=== PATIENT | female | born 1955 | race Caucasian/White ===

== ENCOUNTER 2021-06-30 15:30 | Emergency (ER) | payer OTHER, SELFPAY ==
[2021-06-30 15:34] VITALS: BP 160/77; PULSE 70; RESP 18; TEMP 36.4; O2SAT 99
--- NOTE | 2021-06-30 15:39 | DI.US.S_ITS ---
PROCEDURE: US PERIPH VENOUS LOW EXTREM LT INDICATIONS: pain/swelling TECHNIQUE: Real-time imaging, as well as color and pulse Doppler interrogation, were performed of the lower extremity deep veins from the inguinal ligament to the popliteal fossa. COMPARISON: None. FINDINGS: The common femoral, femoral and popliteal veins are normally compressible, and free of intraluminal thrombus. Color and pulse Doppler demonstrate normal phasic intraluminal flow. There is normal augmentation response to distal compression maneuver. 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 IMPRESSION: No sonographic evidence of DVT. Dictated by: Nikolay Hunt M.D. on 06/30/2021 at 17:56 Approved by: Nikolay Hunt M.D. on 06/30/2021 at 17:57
[2021-06-30] MEDS: ONDANSETRON 4 MG ODT SL (19:50)
[2021-06-30] MEDS: OXYCODONE/ACETAMINOPHEN 5/325 TABLET 1 TAB PO (19:50)
[2021-06-30] MEDS: DOXYCYCLINE HYCLATE 100 MG TABLET PO (19:51)
--- NOTE | 2021-06-30 20:45 | ED_ITS ---
HPI - Extremity Problem <Dana Alejandro PHYSICAL CHEMISTRY TEACHER - Last Filed: 06/30/21 20:53> General Chief complaint: Extremity Problem,Nontraumatic Stated complaint: Left Sided Leg Pain,R/O DVT/Cellulitis Time Seen by Provider: 06/30/21 19:14 Source: patient Mode of arrival: Wheelchair History of Present Illness HPI Narrative: 66-year-old female presents to the emergency department after being sent over from the walk-in clinic for concern about left lower leg cellulitis verses lower extremity DVT. Patient reports that she had a fever 2 days ago, has not had any nausea or vomiting however she does have a history of rheumatoid arthritis, she is a type 2 diabetic, she denies any wound to her lower extremity, she is able to ambulate on it however it is swollen, red and painful. Her skin is taut and shiny to her lower extremities, there is no drainage. Patient is afebrile at this time, and was sent over from her primary care office for ultrasound and further evaluation of her left lower extremity. She reports that her pain is at an 8/10. Related Data Home Medications Medication Instructions Recorded Confirmed BACLOFEN (#LIORESAL) 20 mg PO PRN #0 01/04/11 LEVOTHYROXINE SODIUM 100 mcg PO QDAY@0600 #0 01/04/11 furosemide 40 mg tablet 40 mg PO QDAY #0 01/04/11 hydrochlorothiazide 25 mg tablet 25 mg PO QDAY #0 01/04/11 lisinopril 10 mg tablet 10 mg PO QDAY #0 01/04/11 metformin 1,000 mg tablet 1,000 mg PO BID #0 01/04/11 simvastatin 20 mg tablet 20 mg PO QDAY #0 01/04/11 spironolactone 50 mg tablet 50 mg PO Q DAY #0 01/04/11 (Aldactone) potassium chloride 8 mEq 8 meq PO PRN #0 10/10/11 tablet,extended release (Klor-Con) Previous Rx's Medication Instructions Recorded doxycycline hyclate 100 mg capsule 100 mg PO DAILY 7 Days #14 cap 06/30/21 ondansetron 4 mg disintegrating 4 mg PO Q8HR 7 Days #14 tab 06/30/21 tablet oxycodone-acetaminophen 5 mg-325 1 tab PO Q8H PRN 7 Days #14 tab 06/30/21 mg tablet (Percocet) Allergies Allergy/AdvReac Type Severity Reaction Status Date / Time CODEINE Allergy Mild CERDA, Uncoded 10/27/17 11:57 FEELING LIKE THINGS ARE CRAWLING ON SKIN, CHEST TIGHTNES From ANTIHISTAMINE PO TER 6 Allergy Mild CERDA, CRAWLY Uncoded 10/27/17 11:57 MG-120 MG FEELING MORPHINE Allergy Mild ITCHING Uncoded 10/27/17 11:57 SULFA Allergy Mild UNKNOWN Uncoded 10/27/17 11:57 CHILDHOOD REACTION Review of Systems <FATOUMATA Hines - Last Filed: 06/30/21 20:53> Review of Systems Narrative: General: Endorses having a fever 2 days ago, denies chills Head/Neck: denies headache, neck pain Eyes: denies visual changes, eye pain Cardio: denies chest pain, palpitations Respiratory: denies shortness of breath, cough GI: denies abdominal pain, nausea, vomiting, or diarrhea : denies dysuria, hematuria MSK: denies joint pain, muscle weakness Skin: denies rash, itching, endorses redness, swelling, shiny skin, and pain to her left lower leg from her calf to her ankle Neuro: denies numbness, tingling Exam <FATOUMATA Hines - Last Filed: 06/30/21 20:53> Narrative Exam Narrative: Independently reviewed vitals signs and nursing notes. General: Awake, alert, nontoxic, no cardiorespiratory distress Head/Neck: Atraumatic, neck full range of motion Eyes: EOMI, conjunctiva normal Nose: nares patent, no rhinorrhea Mouth/Throat: moist mucus membranes Cardio: Regular rate and rhythm, no peripheral edema Respiratory: respirations unlabored without wheezing, stridor, or rales. No retractions. GI: Abdomen soft, nontender MSK: Moves all extremities, neurovascularly intact, left lower extremity is zaida thematous, tender to palpation, shiny, taut, without a wound or any drainage, edematous and appears cellulitic. Erythema was outlined with a pen. Skin: Normal capillary refill, no rash Neuro: Normal speech and cognition, normal gait Initial Vital Signs Initial Vital Signs: Vital Signs Temperature 97.5 F L 06/30/21 15:34 Pulse Rate 70 06/30/21 15:34 Respiratory Rate 18 06/30/21 15:34 Blood Pressure 160/77 H 06/30/21 15:34 Pulse Oximetry 99 06/30/21 15:34 <Mehul Sahni DO - Last Filed: 07/01/21 06:59> Initial Vital Signs Initial Vital Signs: Vital Signs Temperature 97.5 F L 06/30/21 15:34 Pulse Rate 70 06/30/21 15:34 Respiratory Rate 18 06/30/21 15:34 Blood Pressure 160/77 H 06/30/21 15:34 Pulse Oximetry 99 06/30/21 15:34 Course <Dana Alejandro [facility] - Last Filed: 06/30/21 20:53> Orders Ordered: Discontinued Medications Doxycycline Hyclate (Doxycycline Hyclate 100 Mg Tablet) 100 mg PO NOW ONE Stop: 06/30/21 19:35 Last Admin: 06/30/21 19:51 Dose: 100 mg Documented by: HAROLDO Ondansetron HCl (Ondansetron 4 Mg Odt) 4 mg SL NOW ONE Stop: 06/30/21 19:37 Last Admin: 06/30/21 19:50 Dose: 4 mg Documented by: HAROLDO Oxycodone/Acetaminophen (Oxycodone/Acetaminophen 5/325 Tablet) 1 tab PO NOW ONE Stop: 06/30/21 19:35 Last Admin: 06/30/21 19:50 Dose: 1 tab Documented by: HAROLDO Vital Signs Vital signs: Vital Signs - 8 hr 06/30/21 15:34 Temperature 97.5 F L Pulse Rate 70 Respiratory Rate 18 Blood Pressure 160/77 H Pulse Oximetry 99 <Mehul Shani DO - Last Filed: 07/01/21 06:59> Orders Ordered: Discontinued Medications Doxycycline Hyclate (Doxycycline Hyclate 100 Mg Tablet) 100 mg PO NOW ONE Stop: 06/30/21 19:35 Last Admin: 06/30/21 19:51 Dose: 100 mg Documented by: HAROLDO Ondansetron HCl (Ondansetron 4 Mg Odt) 4 mg SL NOW ONE Stop: 06/30/21 19:37 Last Admin: 06/30/21 19:50 Dose: 4 mg Documented by: HAROLDO Oxycodone/Acetaminophen (Oxycodone/Acetaminophen 5/325 Tablet) 1 tab PO NOW ONE Stop: 06/30/21 19:35 Last Admin: 06/30/21 19:50 Dose: 1 tab Documented by: HAROLDO Vital Signs Vital signs: Vital Signs - 8 hr 06/30/21 15:34 Temperature 97.5 F L Pulse Rate 70 Respiratory Rate 18 Blood Pressure 160/77 H Pulse Oximetry 99 [facility] - Extremity (Nontraumatic) <Dana Alejandro [facility] - Last Filed: 06/30/21 20:53> Imaging Data US - DVT: Radiologist's Impression: PROCEDURE:? US PERIPH VENOUS LOW EXTREM LT ? INDICATIONS:? pain/swelling ? TECHNIQUE:? Real-time imaging, as well as color and pulse Doppler interrogation, were performed of the lower extremity deep veins from the inguinal ligament to the popliteal fossa.? ? COMPARISON:? None. ? FINDINGS:? The common femoral, femoral and popliteal veins are normally compressible, and free of intraluminal thrombus.? Color and pulse Doppler demonstrate normal phasic intraluminal flow.? There is normal augmentation response to distal compression maneuver. ? ? 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 ? IMPRESSION:? No sonographic evidence of DVT. ? ? Dictated by: Nikolay Hunt M.D. on 06/30/2021 at 17:56 ? ? Approved by: Nikolay Hunt M.D. on 06/30/2021 at 17:57 ? [facility] Narrative Medical decision making narrative: 66-year-old female presented to the emergency department today for left lower extremity erythema, edema, concern for DVT versus cellulitis. Patient has a history of cellulitis or right lower extremity, she reports that this feels exactly like her cellulitis did previously. She reports her of a DVT that is why she was so concerned about a DVT today. 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 Patient does not have any tenderness to the posterior of her left knee this is an incidental finding. Her left lower extremity appears cellulitic without any abscess or wound. Patient is allergic to sulfa, she was started on doxycycline to cover her for MRSA is she has a history of cellulitis in the past. She understands to follow-up closely with her PCP for another evaluation in 48 hours. She was given pain control, her 1st dose of doxycycline, and Zofran for nausea. Patient is appropriate and amenable to discharge home. Vital signs are stable on repeat examination is unremarkable. Patient has been informed of results. Patient has been given strict return to ER precautions for any new or worsening symptoms. Patient understands to follow up closely with outpatient providers as instructed. Patient understands plan and agrees to discharge home. All questions and concerns answered at this time. Discharge Plan Departure Patient Disposition: Home Clinical Impression: Left leg swelling Instructions: DI for Cellulitis -- Adult Activity Restrictions/Additional Instructions: *You have been diagnosed with cellulitis of your left lower leg. Please follow- up with your primary care provider tomorrow, ask for the soonest available appointment for follow-up your emergency department visit. I have prescribed doxycycline for you, this is not carry the risk of tendon rupture as we previously discussed about the other med. Please use the Percocet as needed for breakthrough pain, you may break them in half to start. Use Zofran as needed for nausea, and take these antibiotics for 1 week. Please follow-up with your primary care provider and compare the outlined area with how it is in the office. It was a pleasure to meet you, and so very sorry about your 4 hour wait. *What to do: *Please continue to take your regular medications as directed. [ x] New medication prescriptions sent to your pharmacy: [facility] [ ] New medication written as a paper prescription [ ] No new medications given *Please follow up with your primary care provider in 2-3 days, call for an appointment. Let them know you were seen in the Emergency Department and that we ask that you be seen in follow up. We will electronically transmit a record of today's note if your PCP is in our system *If you do not have a primary care provider please contact the [facility] Resource line at [phone]. They will ask some questions about your medical history and help get you set up with a doctor in the community. *Return to Emergency Department if you should have any new, worsening or concerning symptoms, such as [fever greater than 101F, chills, worsening pain, persistent vomiting or other bothersome symptoms] Prescriptions: New doxycycline hyclate 100 mg capsule 100 mg PO DAILY 7 Days Qty: 14 0RF oxycodone-acetaminophen [Percocet] 5-325 mg tablet 1 tab PO Q8H PRN (Reason: pain) 7 Days Qty: 14 0RF ondansetron 4 mg tablet,disintegrating 4 mg PO Q8HR 7 Days Qty: 14 0RF No Action furosemide 40 MG tablet 40 mg PO QDAY Qty: 0 0RF hydrochlorothiazide 25 MG tablet 25 mg PO QDAY Qty: 0 0RF spironolactone [Aldactone] 50 MG tablet 50 mg PO Q DAY Qty: 0 0RF LEVOTHYROXINE SODIUM 100 mcg PO QDAY@0600 Qty: 0 0RF metformin 1,000 MG tablet 1,000 mg PO BID Qty: 0 0RF simvastatin 20 MG tablet 20 mg PO QDAY Qty: 0 0RF lisinopril 10 MG tablet 10 mg PO QDAY Qty: 0 0RF BACLOFEN (#LIORESAL) 20 mg PO PRN Qty: 0 0RF potassium chloride [Klor-Con 8] 8 MEQ tablet extended release 8 meq PO PRN Qty: 0 0RF Referrals: Farrukh Benítez DO [Primary Care Provider] - <Mehul Sahni DO - Last Filed: 07/01/21 06:59> Cosign ED Attending Cosignature Attestation: Dr Sahni Co-Sign Statement: I was available for consultation during this patient's emergency department visit. This chart is signed by myself for administrative purposes only. I did not have direct contact with this patient during this visit. They were seen independently by the APC.
== END 2021-06-30 20:01 | disposition home or self-care (01) ==
PROVIDERS: Emergency Provider Nurse Practitioner Critical Care Medicine; PCP Family Medicine
DX: M79.89 Other specified soft tissue disorders (principal); Z88.5 Allergy status to narcotic agent; Z88.2 Allergy status to sulfonamides
CPT/HCPCS: 93971; 99283; 99284

== ENCOUNTER 2021-11-11 13:37 | Emergency (ER) | payer OTHER, SELFPAY ==
[2021-11-11 13:46] VITALS: TEMP 36.6
[2021-11-11 15:48] VITALS: PULSE 73; O2SAT 98
[2021-11-11 15:49] VITALS: BP 135/63; PULSE 77; O2SAT 98
[2021-11-11 16:00] VITALS: BP 122/58; PULSE 75; O2SAT 99
--- NOTE | 2021-11-11 16:12 | ED.SKABFB ---
HPI - Skin/Abscess/Foreign Bdy General Chief complaint: Skin/Abscess/Foreign Body Stated complaint: CELlULITIS LEFT LEG AND COUGH AND MUCUS Time Seen by Provider: 11/11/21 15:46 Source: patient Mode of arrival: Ambulatory History of Present Illness HPI narrative: 66-year-old female nonsmoker with history of bronchitis, prior cellulitis and symptoms consistent with long COVID presents with family in the chief complaint of redness and pain in her left lower extremity and chills. She denies any injury, she has no chest pain or shortness of breath. She is not dizzy nor weak or lightheaded. She has had nasal congestion for many months and states that is at baseline. She is allergic to antihistamines and unable to take any [id number]-[id number] medications. She has had cellulitis in this leg previously and states it feels the same. Related Data Home Medications Medication Instructions Recorded Confirmed BACLOFEN (#LIORESAL) 20 mg PO PRN #0 01/04/11 08/26/21 LEVOTHYROXINE SODIUM 100 mcg PO QDAY@0600 #0 01/04/11 08/26/21 furosemide 40 mg tablet 40 mg PO QDAY #0 01/04/11 08/26/21 hydrochlorothiazide 25 mg tablet 25 mg PO QDAY #0 01/04/11 08/26/21 lisinopril 10 mg tablet 10 mg PO QDAY #0 01/04/11 08/26/21 metformin 1,000 mg tablet 1,000 mg PO BID #0 01/04/11 08/26/21 simvastatin 20 mg tablet 20 mg PO QDAY #0 01/04/11 08/26/21 spironolactone 50 mg tablet 50 mg PO Q DAY #0 01/04/11 08/26/21 (Aldactone) potassium chloride 8 mEq 8 meq PO PRN #0 10/10/11 08/26/21 tablet,extended release (Klor-Con) Previous Rx's Medication Instructions Recorded azithromycin 250 mg tablet See Rx Instructions PO .COMPLEX #6 08/26/21 tab doxycycline hyclate 100 mg tablet 100 mg PO BID #20 tab 11/11/21 fluticasone furoate 27.5 2 spray INTRANASAL DAILY #9.1 ml 11/11/21 mcg/actuation nasal spray,suspension (Flonase Sensimist) hydrocodone 5 mg-acetaminophen 325 1 tab PO Q4-6H PRN #10 tab 11/11/21 mg tablet Allergies Allergy/AdvReac Type Severity Reaction Status Date / Time CODEINE Allergy Mild CERDA, Uncoded 08/26/21 12:07 FEELING LIKE THINGS ARE CRAWLING ON SKIN, CHEST TIGHTNES From ANTIHISTAMINE PO TER 6 Allergy Mild CERDA, CRAWLY Uncoded 08/26/21 12:07 MG-120 MG FEELING MORPHINE Allergy Mild ITCHING Uncoded 08/26/21 12:07 SULFA Allergy Mild UNKNOWN Uncoded 08/26/21 12:07 CHILDHOOD REACTION Review of Systems Review of Systems Narrative: GENERAL: See HPI HEENT: See HPI RESPIRATORY: Denies dyspnea, cough, wheezing, hemoptysis, sputum. CARDIOVASCULAR: Denies chest pain, palpitations, orthopnea, edema, GASTROINTESTINAL: Denies nausea, vomiting, abdominal pain, diarrhea, constipation, melena. : Denies dysuria, frequency, incontinence, hematuria, urinary retention. MUSCULOSKELETAL: denies weakness, joint pain, or bony pain SKIN: See HPI NEUROLOGIC: Denies weakness, headache, numbness, change in speech, confusion, seizures, incoordination. PSYCHIATRIC: No concerning psychosocial issues. 12 point review of systems is negative except for those stated above Patient History Social History Smoking Status: Never smoker Smoking Status: Never smoker Exam Narrative Exam Narrative: GENERAL: [66] year old patient appears stated age. Well-developed patient, in mild distress. HEAD: Atraumatic. Normocephalic. EYES: Pupils equal round and reactive. Extraocular motions intact. No scleral icterus. No injection or drainage. ENT: Moist mucous membranes clear drainage bilateral nares and posterior pharynx, no tonsillar swelling [place]way patent. NECK: Trachea midline. Non tender CARDIOVASCULAR: Regular rate and rhythm without murmurs, gallops, or rubs. RESPIRATORY: Clear to auscultation. Breath sounds equal bilaterally. No wheezes, rales, or rhonchi. GASTROINTESTINAL: Abdomen soft, non-tender, nondistended. EXTREMITIES: No edema or joint tenderness. BACK: Nontender without deformity or crepitance. No flank tenderness. NEURO: AOx3. SKIN: Left lower extremity warm and slightly painful to the touch with erythema not quite circumferential, lower 3rd of left lower extremity, no swelling, pulses intact, sensation intact, no medial thigh pain Initial Vital Signs Initial Vital Signs: Vital Signs Temperature 97.8 F 11/11/21 13:46 Course Orders Ordered: Discontinued Medications Doxycycline Hyclate (Doxycycline Hyclate 100 Mg Tablet) 100 mg PO NOW ONE Stop: 11/11/21 16:33 Vital Signs Vital signs: Vital Signs - 8 hr 11/11/21 13:46 11/11/21 15:48 11/11/21 15:49 Temperature 97.8 F Pulse Rate 73 77 Blood Pressure 135/63 Pulse Oximetry 98 98 11/11/21 16:00 Temperature Pulse Rate 75 Blood Pressure 122/58 L Pulse Oximetry 99 MDM - Skin/Abscess/Foreign Bdy MDM Narrative Medical decision making narrative: Patient without systemic findings to suggest significant underlying infection. She did have chills but no fever today, no weakness. Her upper respiratory symptoms have been present for many months, she has no significant shortness of breath, tachypnea, use of accessory muscles or hypoxemia. Lungs are clear, there is no indication for chest x-ray or labs. Lower extremity evaluation certainly most consistent with cellulitis though DVT considered but thought unlikely given presentation. Extensive return precautions given and questions answered to her apparent satisfaction Discharge Plan Departure Patient Disposition: Home Clinical Impression: Cellulitis Instructions: DI for Cellulitis -- Adult Activity Restrictions/Additional Instructions: *You have been diagnosed with [left lower extremity cellulitis, also symptoms consistent with long haul COVID *What to do: *Please continue to take your regular medications as directed. [ x] New medication prescriptions sent to your pharmacy: [[facility] in [place]] [ ] New medication written as a paper prescription [ ] No new medications given *Please follow up with your primary care provider in 2-3 days, call for an appointment. Let them know you were seen in the Emergency Department and that we ask that you be seen in follow up. We will electronically transmit a record of today's note if your PCP is in our system *If you do not have a primary care provider please contact the [facility] Resource line at [phone]. They will ask some questions about your medical history and help get you set up with a doctor in the community. *Return to Emergency Department if you should have any new, worsening or concerning symptoms, such as [fever greater than 101 F, shaking chills, worsening pain, persistent vomiting or other bothersome symptoms] You have been prescribed a short course of narcotic medications. These are potentially dangerous and addictive medications that should be used carefully. While on these medications you cannot drive or operate heavy machinery. Additionally, you cannot sign legal documents or perform any duties such as this. Many people get constipated on narcotic medications so it would be advisable to discuss stool softeners with the pharmacist when you pick up and delivery driver your prescription. Please understand that we cannot provide further refills of narcotics or controlled substances through the ED and your pain management will need to be through your Primary Care Provider Prescriptions: New Flonase Sensimist 27.5 mcg/actuation spray,suspension 2 spray intranasal DAILY Qty: 9.1 0RF Rx Instructions: into each nostril doxycycline hyclate 100 mg tablet 100 mg PO BID Qty: 20 0RF hydrocodone-acetaminophen 5-325 mg tablet 1 tab PO Q4-6H PRN (Reason: pain) Qty: 10 0RF No Action azithromycin 250 mg tablet See Rx Instructions PO .COMPLEX Qty: 6 0RF Rx Instructions: Take 2 tablets (500mg) by mouth today (day 1), then 1 tablet (250mg) by mouth for 4 days (days 2-5). Finish all of this medication. furosemide 40 MG tablet 40 mg PO QDAY Qty: 0 0RF hydrochlorothiazide 25 MG tablet 25 mg PO QDAY Qty: 0 0RF spironolactone [Aldactone] 50 MG tablet 50 mg PO Q DAY Qty: 0 0RF LEVOTHYROXINE SODIUM 100 mcg PO QDAY@0600 Qty: 0 0RF metformin 1,000 MG tablet 1,000 mg PO BID Qty: 0 0RF simvastatin 20 MG tablet 20 mg PO QDAY Qty: 0 0RF lisinopril 10 MG tablet 10 mg PO QDAY Qty: 0 0RF BACLOFEN (#LIORESAL) 20 mg PO PRN Qty: 0 0RF potassium chloride [Klor-Con 8] 8 MEQ tablet extended release 8 meq PO PRN Qty: 0 0RF Referrals: Farrukh Benítez DO [Primary Care Provider] -
[2021-11-11 16:30] VITALS: BP 161/68; PULSE 78; O2SAT 99
[2021-11-11] MEDS: DOXYCYCLINE HYCLATE 100 MG TABLET PO (16:40)
== END 2021-11-11 16:52 | disposition home or self-care (01) ==
PROVIDERS: Emergency Provider Emergency Medicine; PCP Family Medicine
DX: L03.116 Cellulitis of left lower limb (principal)
CPT/HCPCS: 99283

== ENCOUNTER → 2022-01-12 11:55 | Outpatient (CLI) | payer OTHER, SELFPAY ==
[2022-01-12 12:59] LABS: Add Manual Diff / Slide Review NO; Basophils Absolute Auto 100 /uL (0-100); Basophils Percent Auto 0.8 % (0-2); Eosinophils Absolute Auto 100 /uL (0-450); Eosinophils Percent Auto 1.1 % (2-4); Hematocrit 44.9 % (36-46); Hemoglobin 15.2 g/dL (12.0-16.0); Lymphocytes Absolute Auto 3100 /uL (1100-4500); Lymphocytes Percent Auto 32.5 % (25-40); Mean Corpuscular HGB Conc 33.8 % (30-36); Mean Corpuscular Hemoglobin 28.9 PG (26-34); Mean Corpuscular Volume 85.3 fL (80-100); Monocytes Absolute Auto 700 /uL (0-900); Monocytes Percent Auto 7.3 % (3-14); Neutrophils Absolute Auto 5500 /uL (1500-7000); Neutrophils Percent Auto 58.3 % (50-75); Platelet Count 298 X10^3/uL (150-400); Red Blood Cell Count 5.27 X10^6/uL (4.0-5.2); Red Cell Distribution Width 14.5 % (11.6-14.8); White Blood Cell Count 9.4 X10^3/uL (4.5-11.0)
[2022-01-12 13:02] LABS: Appearance Urine UA CLEAR; Bilirubin Urine UA NEGATIVE (NEGATIVE); Color Urine UA YELLOW; Glucose Urine UA 3+ g/dL (Negative); Ketones Urine UA TRACE (NEGATIVE); Leukocyte Esterase Urine UA NEGATIVE (NEGATIVE); Nitrite Urine UA NEGATIVE (Negative); Occult Blood Urine UA TRACE-LYSED (Negative); Protein Urine UA TRACE (Negative); Specific Gravity Urine UA 1.025 (1.000-1.035); Urobilinogen Urine UA 0.2 E.U./dL (0.2)
[2022-01-12 13:31] LABS: Creatinine Urine Random 122.3 mg/dL
[2022-01-12 13:33] LABS: Hemoglobin A1C% w Est Avg Glu 12.3 % (4.0-6.0)
[2022-01-12 13:37] LABS: Microalbumi Creatinin Ratio Ur 30.2 ug/mg CR (<30); Microalbumin Urine Random 3.7 mg/dL (0-1.6)
[2022-01-12 13:45] LABS: Alanine Aminotransferase 24 IU/L (<35); Albumin 4.5 g/dL (3.5-5.0); Albumin Globulin Ratio 1.5 (1.0-2.8); Alkaline Phosphatase 98 U/L (38-126); Aspartate Aminotransferase 22 IU/L (14-36); BUN Creatinine Ratio 31.7 (6-22); Bilirubin Total 0.7 mg/dL (0.2-1.3); Blood Urea Nitrogen 19 mg/dL (7-17); Calcium 10.7 mg/dL (8.4-10.2); Carbon Dioxide 30 mmol/L (22-32); Chloride 97 mmol/L (98-107); Cholesterol 244 mg/dL (140-199); Estimated Glomerular Filt Rate > 60 mL/min (>60); Glucose 334 mg/dL (80-110); HDL Cholesterol 44 mg/dL (40-60); HEMOLYSIS < 15 (0-50); LDL Cholesterol Calculated 164 mg/dL (<100); Sodium 136 mmol/L (137-145); Total Protein 7.5 g/dL (6.3-8.2); Triglycerides 178 mg/dL (35-150)
[2022-01-12 13:57] LABS: TSH w/ Reflex to FT4 1.54 uIU/mL (0.47-4.68)
== END ==
PROVIDERS: PCP Pediatrics; Referring Provider Pediatrics; Visit Provider Pediatrics
DX: E11.9 Type 2 diabetes mellitus without complications (principal); B94.8 Sequelae of other specified infectious and parasitic diseases; L03.90 Cellulitis, unspecified; R53.83 Other fatigue; Z00.00 Encounter for general adult medical examination without abnormal findings; Z13.9 Encounter for screening, unspecified
CPT/HCPCS: 36415; 80053; 80061; 81003; 82043; 82570; 83036; 84443; 85025

== ENCOUNTER → 2022-02-06 16:07 | Outpatient (CLI) | payer OTHER, SELFPAY | PROVIDERS: PCP Pediatrics; Visit Provider Student in an Organized Health Care Education/Training Program | DX: L03.90 Cellulitis, unspecified (principal) | CPT/HCPCS: 87070; 87077; 87147; 87186; 87205 ==

== ENCOUNTER → 2022-02-12 16:37 | Outpatient (CLI) | payer OTHER, SELFPAY ==
--- NOTE | 2022-02-12 16:42 | DI.RAD.S_ITS ---
PROCEDURE: XR FOOT RT MIN 3V INDICATIONS: foot pain no injury diabetes TECHNIQUE: 3 views of the foot were acquired. COMPARISON: [facility], CR, XR ANKLE RT MIN 3V, 02/12/2022, 16:44. FINDINGS: Bones: No fractures or dislocations. No suspicious bony lesions. Generalized degenerative changes are seen, which are worst along the Lisfranc joint. A moderate Achilles insertion spur can be seen. A plantar calcaneal spur is seen. Soft tissues: There is generalized soft tissue swelling. IMPRESSION: Generalized soft tissue swelling, without an acute bony abnormality seen. Generalized degenerative changes are seen, which are worst along the Lisfranc joint. If there is strong suspicion for developing osteomyelitis, please consider a dedicated MRI without and with contrast for further evaluation (assuming that there is no contraindication to MRI). Dictated by: Romeo Roldan M.D. on 02/12/2022 at 16:08 Approved by: Romeo Roldan M.D. on 02/12/2022 at 16:09
--- NOTE | 2022-02-12 16:42 | DI.RAD.S_ITS ---
PROCEDURE: XR ANKLE RT MIN 3V INDICATIONS: ankle pain w/ambulation, no injury diabetes TECHNIQUE: 3 views of the ankle were acquired. COMPARISON: [facility], CR, XR FOOT RT MIN 3V, 02/12/2022, 16:44. FINDINGS: Bones: Remote, healed fractures are seen involving the distal tibia and distal fibula. Generalized degenerative changes are seen, which are worst along the tibiotalar joint. A prominent Achilles insertion spur can be seen. A plantar calcaneal spur is seen. Soft tissues: Generalized moderate soft tissue swelling can be seen. IMPRESSION: Soft tissue swelling is seen, without an acute bony abnormality seen by plain film. If there is point tenderness (or other clinical suspicion for a fracture not seen on these images) then a dedicated CT or a short-term followup plain film series could be considered for further evaluation, as clinically appropriate. Prominent degenerative changes are seen. Remote fractures can be seen of the distal tibia and distal fibular shafts. Dictated by: Romeo Roldan M.D. on 02/12/2022 at 16:06 Approved by: Romeo Roldan M.D. on 02/12/2022 at 16:08
== END ==
PROVIDERS: PCP Pediatrics; Referring Provider Student in an Organized Health Care Education/Training Program; Visit Provider Student in an Organized Health Care Education/Training Program
DX: M77.31 Calcaneal spur, right foot (principal); M79.671 Pain in right foot; M25.571 Pain in right ankle and joints of right foot; M79.89 Other specified soft tissue disorders
CPT/HCPCS: 73610; 73630

== ENCOUNTER → 2022-03-20 12:07 | Outpatient (CLI) | payer OTHER, SELFPAY ==
[2022-03-20 15:09] LABS: Alanine Aminotransferase 20 IU/L (<35); Albumin 4.1 g/dL (3.5-5.0); Albumin Globulin Ratio 1.4 (1.0-2.8); Alkaline Phosphatase 93 U/L (38-126); Aspartate Aminotransferase 16 IU/L (14-36); BUN Creatinine Ratio 34.7 (6-22); Bilirubin Total 0.5 mg/dL (0.2-1.3); Blood Urea Nitrogen 17 mg/dL (7-17); Calcium 10.2 mg/dL (8.4-10.2); Carbon Dioxide 28 mmol/L (22-32); Chloride 101 mmol/L (98-107); Estimated Glomerular Filt Rate > 60 mL/min (>60); Globulin 2.9 g/dL (1.7-4.1); Glucose 276 mg/dL (80-110); HEMOLYSIS < 15 (0-50); Potassium 3.8 mmol/L (3.4-5.1); Sodium 136 mmol/L (137-145)
[2022-03-20 15:37] LABS: TSH w/ Reflex to FT4 1.87 uIU/mL (0.47-4.68)
[2022-03-21 08:08] LABS: Parathyroid Hormone, Intact 53 pg/mL (15-65)
== END ==
PROVIDERS: PCP Pediatrics; Referring Provider Pediatrics; Visit Provider Pediatrics
DX: E11.9 Type 2 diabetes mellitus without complications (principal); E03.9 Hypothyroidism, unspecified; R53.83 Other fatigue
CPT/HCPCS: 36415; 80053; 82310; 83970; 84443

== ENCOUNTER → 2022-06-02 14:52 | Outpatient (CLI) | payer OTHER, SELFPAY ==
--- NOTE | 2022-06-02 14:54 | DI.RAD.S_ITS ---
PROCEDURE: XR CHEST 2V INDICATIONS: cough TECHNIQUE: 2 views of the chest were acquired. COMPARISON: None. FINDINGS: Surgical changes and devices: None. Lungs and pleura: Lungs are clear. No pleural effusions or pneumothorax. Mediastinum: Mediastinal contours are normal. Heart size is normal. Bones and chest wall: No suspicious bony abnormalities. Soft tissues appear unremarkable. IMPRESSION: No acute cardiopulmonary disease process. Dictated by: Tori Carey MD, PhD on 06/02/2022 at 15:26 Approved by: Tori Carey MD, PhD on 06/02/2022 at 15:26
--- NOTE | 2022-06-02 14:54 | DI.RAD.S_ITS ---
PROCEDURE: XR SINUS MIN 3V INDICATIONS: severe congestion TECHNIQUE: 3 views of the sinuses were acquired. COMPARISON: None. FINDINGS: Sinuses: Increased opacification of the right frontal sinus. The visualized mastoids also appear clear. Bones: No suspicious bony lesions. Nasal septum is midline. IMPRESSION: Possible mucosal thickening involving the right frontal sinus. Recommend CT scan of the sinuses for definitive characterization. Dictated by: Tori Carey MD, PhD on 06/02/2022 at 15:29 Approved by: Tori Carey MD, PhD on 06/02/2022 at 15:30
== END ==
PROVIDERS: PCP Pediatrics; Referring Provider Physician Assistant Medical; Visit Provider Physician Assistant Medical
DX: R05.9 Cough, unspecified (principal); R09.81 Nasal congestion
CPT/HCPCS: 70220; 71046

== ENCOUNTER → 2022-11-06 10:11 | Outpatient (CLI) | payer MEDICARE, SELFPAY ==
--- NOTE | 2022-11-06 10:13 | DI.RAD.S_ITS ---
PROCEDURE: XR SHOULDER RT MIN 2V INDICATIONS: right shoulder pain TECHNIQUE: 3 views of the shoulder were acquired. COMPARISON: None. FINDINGS: Bones: No fractures or dislocations. No suspicious bony lesions. Visualized ribs appear intact. Glenohumeral and acromioclavicular joint space narrowing with associated osteophytosis. Soft tissues: No suspicious soft tissue calcifications. IMPRESSION: Moderate shoulder osteoarthritis. Dictated by: Joey Flores M.D. on 11/06/2022 at 13:41 Approved by: Joey Flores M.D. on 11/06/2022 at 13:42
--- NOTE | 2022-11-06 10:13 | DI.RAD.S_ITS ---
PROCEDURE: XR FOOT RT MIN 3V INDICATIONS: 2nd toe pain TECHNIQUE: 3 views of the foot were acquired. COMPARISON: [facility], CR, XR FOOT RT MIN 3V, 02/12/2022, 16:44. FINDINGS: Bones: Interval bone remodeling of the 4th and 5th metatarsal fractures. Soft tissues: No tibiotalar joint effusion. Achilles tendon appears normal. Stable 6 millimeter dense region medial to the 2nd mid phalanx. IMPRESSION: Stable 6 millimeter dense region medial to the 2nd middle phalanx. Findings probably represent dystrophic calcification, less likely foreign body. No definite acute radiographic abnormality. If pain persists with conservative management, consider repeat radiographs in 10-14 days or cross sectional imaging such as CT or MRI for further assessment. Dictated by: Joey Flores M.D. on 11/06/2022 at 13:37 Approved by: Joey Flores M.D. on 11/06/2022 at 13:41
== END ==
PROVIDERS: PCP Family Medicine; Referring Provider Family Medicine; Visit Provider Family Medicine
DX: M79.674 Pain in right toe(s) (principal); M79.89 Other specified soft tissue disorders; M25.511 Pain in right shoulder; M19.011 Primary osteoarthritis, right shoulder
CPT/HCPCS: 73030; 73630

== ENCOUNTER 2022-12-05 13:52 | Inpatient (IN) | payer MEDICARE, SELFPAY ==
[2022-12-05] VITALS (10 sets, daily range): BP systolic 154–198; BP diastolic 60–79; PULSE 58–72; RESP 16–18; TEMP 36.2–36.6; O2SAT 94–100; BMI 37.4
--- NOTE | 2022-12-05 14:10 | ED.GENADULT ---
HPI - General Adult General Chief complaint: Skin/Abscess/Foreign Body Stated complaint: per pt rt leg infection Time Seen by Provider: 12/05/22 14:01 History of Present Illness HPI narrative: 67-year-old female nonsmoker with history of diabetes and hypothyroid presents at the request of the walk-in clinic for evaluation of a tender, red and swollen right lower extremity with fever as high as 103 and shaking chills. She states that she was scratched by a cat about 1 week ago and over the past few days developed rapidly increasing swelling and pain. She now has red streaks moving upper thigh. She denies runny nose, sore throat or cough. She has no chest pain Related Data Home Medications Medication Instructions Recorded Confirmed alprazolam 0.25 mg tablet 0.25 mg PO DAILY PRN anxiety, sleep 03/20/22 12/06/22 aspirin 81 mg tablet,delayed 81 mg PO DAILY 03/20/22 12/06/22 release (Kenny Low Dose Aspirin) atorvastatin 40 mg tablet 40 mg PO QPM 03/20/22 12/06/22 levothyroxine 100 mcg tablet 100 mcg PO DAILY 03/20/22 12/06/22 lisinopril 20 mg tablet 20 mg PO DAILY 03/20/22 12/06/22 metformin 1,000 mg tablet 1,000 mg PO BID 03/20/22 12/06/22 tramadol 50 mg tablet 50 mg PO Q6H PRN Pain, Moderate 03/20/22 12/06/22 Previous Rx's Medication Instructions Recorded Disabled Parking Permit #1 ea 03/20/22 blood sugar diagnostic (Blood #100 ea 03/26/22 Glucose Test strips) blood-glucose meter #1 ea 03/26/22 lancets 33 gauge (BD Ultra Fine #100 ea 03/26/22 Lancets) blood-glucose meter,continuous #1 ea 11/06/22 (Dexcom G6 Microbiology Professor) blood-glucose sensor (Dexcom G6 #3 ea 11/06/22 Sensor device) blood-glucose transmitter (Dexcom #1 ea 11/06/22 G6 Transmitter device) insulin glargine 100 unit/mL (3 See Rx Instructions .Route 11/19/22 mL) subcutaneous pen (Lantus .COMPLEX #15 mL Solostar U-100 Insulin) Allergies Allergy/AdvReac Type Severity Reaction Status Date / Time barbital Allergy Severe ITCHING Verified 12/05/22 14:15 nettle Allergy Severe Anaphylaxis Verified 12/05/22 14:15 codeine Allergy Intermediate Headache Verified 12/05/22 14:15 empagliflozin Allergy Intermediate Hives Verified 12/05/22 14:15 [From Jardiance] adhesive tape Allergy Mild ITCHING Verified 12/06/22 04:01 morphine Allergy Mild ITCHING Verified 12/05/22 14:15 Sulfa (Sulfonamide Allergy Unknown childhood Verified 12/05/22 14:15 Antibiotics) From ANTIHISTAMINE PO TER 6 Allergy Mild CERDA, CRAWLY Uncoded 12/05/22 14:15 MG-120 MG FEELING Review of Systems Review of Systems Narrative: or shortness of breath. GENERAL: Denies chills, fatigue, malaise, fever, sweats. HEENT: Denies sinus pain, ear pain, sore throat, difficulty swallowing, dizziness. RESPIRATORY: Denies dyspnea, cough, wheezing, hemoptysis, sputum. CARDIOVASCULAR: Denies chest pain, palpitations, orthopnea, edema, GASTROINTESTINAL: Denies nausea, vomiting, abdominal pain, diarrhea, constipation, melena. : Denies dysuria, frequency, incontinence, hematuria, urinary retention. MUSCULOSKELETAL: denies weakness, joint pain, or bony pain SKIN: Denies rash, skin lesions, or other NEUROLOGIC: Denies weakness, headache, numbness, change in speech, confusion, seizures, incoordination. PSYCHIATRIC: No concerning psychosocial issues. 12 point review of systems is negative except for those stated above Patient History Social History household members: children Smoking Status: Never smoker alcohol intake: former substance use type: does not use Smoking Status: Never smoker Exam Narrative Exam Narrative: GENERAL: [67] year old patient appears stated age. Well-developed patient, in mild distress. Appears to feel unwell, weak, moving slowly HEAD: Atraumatic. Normocephalic. EYES: Pupils equal round and reactive. Extraocular motions intact. No scleral icterus. No injection or drainage. ENT: Nose without bleeding, purulent drainage. Throat without erythema, tonsillar hypertrophy or exudate. Airway patent. NECK: Trachea midline. Non tender CARDIOVASCULAR: Regular rate and rhythm without murmurs, gallops, or rubs. RESPIRATORY: Clear to auscultation. Breath sounds equal bilaterally. No wheezes, rales, or rhonchi. GASTROINTESTINAL: Abdomen soft, non-tender, nondistended. EXTREMITIES: No edema or joint tenderness. BACK: Nontender without deformity or crepitance. No flank tenderness. NEURO: AOx3. SKIN: Right lower extremity with circumferential erythema from just below the knee to at least the ankle, there is mild lymphangitis extending proximal to the knee and medially. There are superficial abrasions but no evidence of induration or fluctuance, low suspicion for foreign body. Initial Vital Signs Initial Vital Signs: Vital Signs Temperature 97.9 F 12/05/22 14:12 Pulse Rate 72 12/05/22 14:12 Respiratory Rate 18 12/05/22 14:12 Blood Pressure 198/79 H 12/05/22 14:12 Pulse Oximetry 96 12/05/22 14:12 Oxygen Delivery Method Room Air 12/05/22 14:12 Course Orders Ordered: Acetaminophen (Acetaminophen 325 Mg Tablet) 650 mg PO Q6H PRN PRN Reason: Fever/Mild Pain (1-3) Alprazolam (Alprazolam 0.25 Mg Tablet) 0.25 mg PO DAILY PRN PRN Reason: anxiety, sleep Aspirin (Aspirin Ec 81 Mg Tablet) 81 mg PO DAILY MARIE Atorvastatin Calcium (Atorvastatin 20 Mg Tablet) 40 mg PO QPM [facility] Dextrose (Dextrose 50 % In Water 25 Gm/50 Ml Syringe) 25 gm IV PRN PRN PRN Reason: Hypoglycemia Enoxaparin Sodium (Enoxaparin 40 Mg/0.4 Ml Syringe) 40 mg SUBCUT DAILY [facility] Ceftriaxone Sodium 1,000 mg/ (Sodium Chloride) 100 mls @ 200 mls/hr IV Q24H MARIE Vancomycin HCl (Vancomycin) 1,000 mg in 200 mls @ 200 mls/hr IV Q8H [facility] Insulin Glargine (Insulin Glargine 100 Unit/Ml 3ml Pen) 40 unit SUBCUT DAILY [facility] Insulin Human Lispro (Insulin Lispro 100 Unit/Ml 3ml Vial) 0 unit SUBCUT ACHS [facility]; Protocol Last Admin: 12/05/22 21:16 Dose: 7 unit Documented By: MS Co-signed By: ANNABEL Levothyroxine Sodium (Levothyroxine 100 Mcg Tablet) 100 mcg PO QACBREAK [facility] Last Admin: 12/06/22 06:50 Dose: 100 mcg Documented By: AUGUSTO Naloxone HCl (Naloxone 0.4 Mg/Ml Vial) 0.2 mg IV Q2MIN PRN PRN Reason: Opiate Reversal Ondansetron HCl (Ondansetron 4 Mg/2 Ml Inj) 4 mg IV Q8HR PRN PRN Reason: Nausea And Vomiting Last Admin: 12/05/22 17:53 Dose: 4 mg Documented By: CALVIN Oxycodone HCl (Oxycodone Ir 5 Mg Tablet) 5 mg PO Q3H PRN PRN Reason: Pain, Moderate (4-6) Last Admin: 12/05/22 17:53 Dose: 5 mg Documented By: CALVIN Sodium Chloride (Sodium Chloride 0.9% Flush) 10 ml IV BID [facility] Last Admin: 12/05/22 18:01 Dose: 10 ml Documented By: CALVIN Vancomycin HCl (Vancomycin Trough) 1 request [facility] Stop: 12/07/22 10:31 Discontinued Medications Hydromorphone HCl (Hydromorphone 0.5 Mg Inj) 0.5 mg IV Q2H PRN PRN Reason: Pain, Severe (7-10) Sodium Chloride (Normal Saline 0.9%) 1,000 mls @ 1,000 mls/hr IV BOLUS ONE Stop: 12/05/22 15:09 Last Infusion: 12/05/22 16:44 Dose: 0 mls/hr Documented By: Admin: 12/05/22 15:03 Dose: 1,000 mls/hr Documented By: DORIAN Vancomycin HCl/Dextrose (Vancomycin) 1,500 mg in 300 mls @ 200 mls/hr IV NOW ONE Stop: 12/05/22 15:41 Last Infusion: 12/05/22 16:44 Dose: 0 mls/hr Documented By: Admin: 12/05/22 15:03 Dose: 200 mls/hr Documented By: DORIAN Ceftriaxone Sodium 2,000 mg/ (Sodium Chloride) 100 mls @ 200 mls/hr IV NOW ONE Stop: 12/05/22 15:16 Last Admin: 12/05/22 17:59 Dose: 100 mls/hr Documented By: CALVIN Vancomycin HCl (Vancomycin) 1,250 mg in 250 mls @ 250 mls/hr IV Q12H [facility] Last Infusion: 12/06/22 04:40 Dose: 0 mls/hr Documented By: Admin: 12/06/22 03:29 Dose: 250 mls/hr Documented By: AUGUSTO Vital Signs Vital signs: Vital Signs - 8 hr 12/05/22 14:12 Temperature 97.9 F Pulse Rate 72 Respiratory Rate 18 Blood Pressure 198/79 H Pulse Oximetry 96 Oxygen Delivery Method Room Air Medical Decision Making Lab Data 12/06/22 05:25 12/06/22 05:25 Labs: Lab Results 12/05/22 12/05/22 12/05/22 Range/Units 14:25 14:25 14:25 WBC 14.3 H (4.5-11.0) X10^3/uL RBC 4.57 (4.0-5.2) X10^6/uL Hgb 13.0 (12.0-16.0) g/dL Hct 39.0 (36-46) % MCV 85.3 (80-100) fL MCH 28.5 (26-34) PG MCHC 33.5 (30-36) % RDW 14.2 (11.6-14.8) % Plt Count 255 (150-400) X10^3/uL Neut % (Auto) 74.6 (50-75) % Lymph % (Auto) 18.4 L (25-40) % Crawford % (Auto) 5.3 (3-14) % Eos % (Auto) 0.6 L (2-4) % Baso % (Auto) 1.1 (0-2) % Neut # (Auto) 32656 H (7910-2840) /uL Lymph # (Auto) 2600 (7089-6016) /uL Crawford # (Auto) 800 (0-900) /uL Eos # (Auto) 100 (0-450) /uL Baso # (Auto) 200 H (0-100) /uL Sodium 131 L (137-145) mmol/L Potassium 3.9 (3.4-5.1) mmol/L Chloride 100 (98-107) mmol/L Carbon Dioxide 23 (22-32) mmol/L BUN 13 (7-17) mg/dL Creatinine 0.40 L (0.52-1.04) mg/dL Estimated GFR > 60 (>60) mL/min BUN/Creatinine Ratio 32.5 H (6-22) Glucose 235 H (80-110) mg/dL Lactate 1.2 (0.7-2.1) mmol/L Calcium 10.0 (8.4-10.2) mg/dL Total Bilirubin 0.7 (0.2-1.3) mg/dL AST 16 (14-36) IU/L ALT 19 (<35) IU/L Alkaline Phosphatase 114 (38-126) U/L Total Protein 6.9 (6.3-8.2) g/dL Albumin 3.7 (3.5-5.0) g/dL Globulin 3.2 (1.7-4.1) g/dL Albumin/Globulin Ratio 1.2 (1.0-2.8) SARS-CoV-2 (PCR) (Negative) 12/05/22 Range/Units 15:34 WBC (4.5-11.0) X10^3/uL RBC (4.0-5.2) X10^6/uL Hgb (12.0-16.0) g/dL Hct (36-46) % MCV (80-100) fL MCH (26-34) PG MCHC (30-36) % RDW (11.6-14.8) % Plt Count (150-400) X10^3/uL Neut % (Auto) (50-75) % Lymph % (Auto) (25-40) % Crawford % (Auto) (3-14) % Eos % (Auto) (2-4) % Baso % (Auto) (0-2) % Neut # (Auto) (2640-1252) /uL Lymph # (Auto) (8049-0856) /uL Crawford # (Auto) (0-900) /uL Eos # (Auto) (0-450) /uL Baso # (Auto) (0-100) /uL Sodium (137-145) mmol/L Potassium (3.4-5.1) mmol/L Chloride (98-107) mmol/L Carbon Dioxide (22-32) mmol/L BUN (7-17) mg/dL Creatinine (0.52-1.04) mg/dL Estimated GFR (>60) mL/min BUN/Creatinine Ratio (6-22) Glucose (80-110) mg/dL Lactate (0.7-2.1) mmol/L Calcium (8.4-10.2) mg/dL Total Bilirubin (0.2-1.3) mg/dL AST (14-36) IU/L ALT (<35) IU/L Alkaline Phosphatase (38-126) U/L Total Protein (6.3-8.2) g/dL Albumin (3.5-5.0) g/dL Globulin (1.7-4.1) g/dL Albumin/Globulin Ratio (1.0-2.8) SARS-CoV-2 (PCR) Negative (Negative) MDM Narrative Medical decision making narrative: 67-year-old female diabetic with BMI 537 presents with rapid progression of infectious process of right lower extremity which is now circumferential with lymphangitis. She has risk factors including diabetes and obesity. Patient is a poor candidate for oral antibiotics at this time and is appropriate for admission. I have discussed this case with on-call hospitalist (Dr. Foley), he will see the patient at the bedside. Patient agrees with and understands the diagnosis and plan. Discharge Plan Departure Patient Disposition: Admitted as Observation Clinical Impression: Cellulitis Admit Date/Time: 12/05/22 16:03 Admit Provider: Gavin Foley
[2022-12-05 14:35] LABS: Add Manual Diff / Slide Review NO; Basophils Absolute Auto 200 /uL (0-100); Basophils Percent Auto 1.1 % (0-2); Eosinophils Absolute Auto 100 /uL (0-450); Eosinophils Percent Auto 0.6 % (2-4); Lymphocytes Absolute Auto 2600 /uL (1100-4500); Lymphocytes Percent Auto 18.4 % (25-40); Mean Corpuscular HGB Conc 33.5 % (30-36); Mean Corpuscular Hemoglobin 28.5 PG (26-34); Mean Corpuscular Volume 85.3 fL (80-100); Monocytes Absolute Auto 800 /uL (0-900); Monocytes Percent Auto 5.3 % (3-14); Neutrophils Absolute Auto 10600 /uL (1500-7000); Neutrophils Percent Auto 74.6 % (50-75); Platelet Count 255 X10^3/uL (150-400); Red Blood Cell Count 4.57 X10^6/uL (4.0-5.2); Red Cell Distribution Width 14.2 % (11.6-14.8); White Blood Cell Count 14.3 X10^3/uL (4.5-11.0)
[2022-12-05 14:44] LABS: Lactate (Lactic Acid) 1.2 mmol/L (0.7-2.1)
[2022-12-05 14:45] LABS: Alanine Aminotransferase 19 IU/L (<35); Albumin 3.7 g/dL (3.5-5.0); Albumin Globulin Ratio 1.2 (1.0-2.8); Alkaline Phosphatase 114 U/L (38-126); Aspartate Aminotransferase 16 IU/L (14-36); BUN Creatinine Ratio 32.5 (6-22); Bilirubin Total 0.7 mg/dL (0.2-1.3); Blood Urea Nitrogen 13 mg/dL (7-17); Carbon Dioxide 23 mmol/L (22-32); Chloride 100 mmol/L (98-107); Estimated Glomerular Filt Rate > 60 mL/min (>60); Globulin 3.2 g/dL (1.7-4.1); Glucose 235 mg/dL (80-110); HEMOLYSIS < 15 (0-50); Potassium 3.9 mmol/L (3.4-5.1); Sodium 131 mmol/L (137-145); Total Protein 6.9 g/dL (6.3-8.2)
[2022-12-05] MEDS: SODIUM CHLORIDE 0.9% 1,000 ML 1000 ML IV (15:03)
[2022-12-05] MEDS: VANCOMYCIN 1,500 MG/300 ML PIGGYBACK 200 MG IV (15:03)
[2022-12-05 15:53] LABS: COVID19 -Nasal RAPID Negative (Negative)
[2022-12-05] MEDS: ONDANSETRON 4 MG/2 ML INJ IV (17:53)
[2022-12-05] MEDS: OXYCODONE IR 5 MG TABLET PO (17:53)
[2022-12-05] MEDS: cefTRIAXone 2,000 MG in SODIUM CHLORIDE 0.9% 100 ML 100 MG IV (17:59)
[2022-12-05] MEDS: SODIUM CHLORIDE 0.9% FLUSH 10 ML IV (18:01)
[2022-12-05] MEDS: INSULIN LISPRO 100 UNIT/ML 3ML VIAL SUBCUT (21:16)
[2022-12-06] VITALS (12 sets, daily range): BP systolic 138–161; BP diastolic 53–67; PULSE 67–75; RESP 16–18; TEMP 36.5–36.8; O2SAT 95–98
[2022-12-06] MEDS: VANCOMYCIN 1,250 MG/250 ML PIGGYBACK 250 MG IV (03:29)
--- NOTE | 2022-12-06 05:02 | PM.HP.1 ---
History of Present Illness History of Present Illness Date Patient Seen: 12/05/22 Time Patient Seen: 22:00 Chief complaint: per pt rt leg infection Narrative: Ms. Gastelum is a 67W with PMH DM, hypothyroidism who presents with a warm, painful right leg. She did get a scratch from a cat a few days ago on her lower leg. Since then she has had progressive swelling, erythema, and pain. She has noted a fever and chills. In the ED workup was done, vitals notable for afebrile, heart rate in the 70s, blood pressure 190s/70s, sats 96% on room air. Labs reviewed by me and notable for WBC 14.3, hgb 13, plts 255. Na 131, k 3.9, creatinine 0.40. Lactate 1.2. She was ordered for antibiotics and IV fluids and admitted for treatment of her cellulitis [facility] Social History household members: children Smoking Status: Never smoker alcohol intake: former substance use type: does not use Meds Home Medications and Allergies Home Medications Medication Instructions Recorded Confirmed Type Disabled Parking Permit #1 ea 03/20/22 12/06/22 Rx alprazolam 0.25 mg tablet 0.25 mg PO DAILY PRN anxiety, sleep 03/20/22 12/06/22 History aspirin 81 mg tablet,delayed 81 mg PO DAILY 03/20/22 12/06/22 History release (Kenny Low Dose Aspirin) atorvastatin 40 mg tablet 40 mg PO QPM 03/20/22 12/06/22 History levothyroxine 100 mcg tablet 100 mcg PO DAILY 03/20/22 12/06/22 History lisinopril 20 mg tablet 20 mg PO DAILY 03/20/22 12/06/22 History metformin 1,000 mg tablet 1,000 mg PO BID 03/20/22 12/06/22 History tramadol 50 mg tablet 50 mg PO Q6H PRN Pain, Moderate 03/20/22 12/06/22 History blood sugar diagnostic (Blood #100 ea 03/26/22 12/06/22 Rx Glucose Test strips) blood-glucose meter #1 ea 03/26/22 12/06/22 Rx lancets 33 gauge (BD Ultra Fine #100 ea 03/26/22 12/06/22 Rx Lancets) blood-glucose meter,continuous #1 ea 11/06/22 12/06/22 Rx (Dexcom G6 Road Engineer) blood-glucose sensor (Dexcom G6 #3 ea 11/06/22 12/06/22 Rx Sensor device) blood-glucose transmitter (Dexcom #1 ea 11/06/22 12/06/22 Rx G6 Transmitter device) insulin glargine 100 unit/mL (3 See Rx Instructions .Route 11/19/22 12/06/22 Rx mL) subcutaneous pen (Lantus .COMPLEX #15 mL Solostar U-100 Insulin) Allergies Allergy/AdvReac Type Severity Reaction Status Date / Time barbital Allergy Severe ITCHING Verified 12/05/22 14:15 nettle Allergy Severe Anaphylaxis Verified 12/05/22 14:15 codeine Allergy Intermediate Headache Verified 12/05/22 14:15 empagliflozin Allergy Intermediate Hives Verified 12/05/22 14:15 [From Jardiance] adhesive tape Allergy Mild ITCHING Verified 12/06/22 04:01 morphine Allergy Mild ITCHING Verified 12/05/22 14:15 Sulfa (Sulfonamide Allergy Unknown childhood Verified 12/05/22 14:15 Antibiotics) From ANTIHISTAMINE PO TER 6 Allergy Mild CERDA, CRAWLY Uncoded 12/05/22 14:15 MG-120 MG FEELING Review of Systems Review of Systems Narrative: 14 systems reviewed and negative aside from what is noted in HPI Exam Vital Signs (past 8 hours): - 12/05/22 21:40 12/06/22 01:00 12/06/22 00:20 Temperature 97.9 F Pulse Rate 75 Respiratory Rate 16 Blood Pressure 138/53 L Pulse Oximetry 96 96 96 Oxygen Delivery Method Room Air Room Air Oxygen Flow Rate 0 12/06/22 04:11 Temperature 97.8 F Pulse Rate 72 Respiratory Rate 18 Blood Pressure 154/60 H Pulse Oximetry 98 Oxygen Delivery Method Oxygen Flow Rate 0 Oxygen Delivery Method Room Air Oxygen Flow Rate 0 Narrative Exam Narrative: GEN: no acute distress HEENT: moist mucous membranes CV: regular rate and rhythm, no murmurs PULM: clear bilaterally ABD: soft, nontender, nondistended EXT: warm and well perfused, right leg with cicumferential erythema above the ankle that extends above the knee on the inner thigh, notable warmth, tenderness, no fluctuance noted, right knee with normal range of motion NEURO: awake, alert, oriented Objective Labs 12/05/22 14:25 12/05/22 14:25 Labs: Laboratory Results - last 24 hr 12/05/22 12/05/22 12/05/22 14:25 14:25 14:25 WBC 14.3 H RBC 4.57 Hgb 13.0 Hct 39.0 MCV 85.3 MCH 28.5 MCHC 33.5 RDW 14.2 Plt Count 255 Neut % (Auto) 74.6 Lymph % (Auto) 18.4 L [place] % (Auto) 5.3 Eos % (Auto) 0.6 L Baso % (Auto) 1.1 Neut # (Auto) 96571 H Lymph # (Auto) 2600 [place] # (Auto) 800 Eos # (Auto) 100 Baso # (Auto) 200 H Sodium 131 L Potassium 3.9 Chloride 100 Carbon Dioxide 23 BUN 13 Creatinine 0.40 L Estimated GFR > 60 BUN/Creatinine Ratio 32.5 H Glucose 235 H Lactate 1.2 Calcium 10.0 Total Bilirubin 0.7 AST 16 ALT 19 Alkaline Phosphatase 114 Total Protein 6.9 Albumin 3.7 Globulin 3.2 Albumin/Globulin Ratio 1.2 SARS-CoV-2 (PCR) 12/05/22 15:34 WBC RBC Hgb Hct MCV MCH MCHC RDW Plt Count Neut % (Auto) Lymph % (Auto) [place] % (Auto) Eos % (Auto) Baso % (Auto) Neut # (Auto) Lymph # (Auto) [place] # (Auto) Eos # (Auto) Baso # (Auto) Sodium Potassium Chloride Carbon Dioxide BUN Creatinine Estimated GFR BUN/Creatinine Ratio Glucose Lactate Calcium Total Bilirubin AST ALT Alkaline Phosphatase Total Protein Albumin Globulin Albumin/Globulin Ratio SARS-CoV-2 (PCR) Negative Assessment & Plan Assessment & Plan narrative: 1. Right leg cellulitis -secondary to wound from a cat scracth (not cat scratch disease) -given history of diabetes will treat broadly -for now continue vanco/ceftriaxone -follow up blood cultures -ordered for pain control 2. Type 2 Diabetes -continue insulin with sliding scale -check glucose achs 3. Hypothyroidism -continue synthroid 4. Hyponatremia, mild -suspect secondary to hypovolemia from infection -did receive IV fluids -recheck sodium with morning labs I have discussed plan and obtained history from patient. I have discussed plan of care with ED physician and bedside nurse. I have reviewed labs, imaging. CODE: Full Proxy: Benita Verma, daughter Quality VTE Deep Vein Thrombosis/Pulmonary Embolism Present on Admission: No
[2022-12-06 06:01] LABS: Add Manual Diff / Slide Review NO; Basophils Absolute Auto 100 /uL (0-100); Basophils Percent Auto 0.6 % (0-2); Eosinophils Absolute Auto 200 /uL (0-450); Eosinophils Percent Auto 1.4 % (2-4); Hematocrit 35.4 % (36-46); Hemoglobin 11.9 g/dL (12.0-16.0); Lymphocytes Absolute Auto 2300 /uL (1100-4500); Mean Corpuscular HGB Conc 33.7 % (30-36); Mean Corpuscular Hemoglobin 28.6 PG (26-34); Mean Corpuscular Volume 84.8 fL (80-100); Monocytes Absolute Auto 800 /uL (0-900); Monocytes Percent Auto 7.2 % (3-14); Neutrophils Absolute Auto 8200 /uL (1500-7000); Neutrophils Percent Auto 70.8 % (50-75); Platelet Count 227 X10^3/uL (150-400); Red Blood Cell Count 4.18 X10^6/uL (4.0-5.2); Red Cell Distribution Width 14.3 % (11.6-14.8); White Blood Cell Count 11.5 X10^3/uL (4.5-11.0)
[2022-12-06 06:16] LABS: BUN Creatinine Ratio 27.7 (6-22); Blood Urea Nitrogen 13 mg/dL (7-17); Calcium 9.3 mg/dL (8.4-10.2); Carbon Dioxide 22 mmol/L (22-32); Chloride 102 mmol/L (98-107); Estimated Glomerular Filt Rate > 60 mL/min (>60); Glucose 256 mg/dL (80-110); HEMOLYSIS < 15 (0-50); Magnesium 1.7 mg/dL (1.6-2.3); Potassium 4.1 mmol/L (3.4-5.1); Sodium 130 mmol/L (137-145)
[2022-12-06 06:32] LABS: Procalcitonin 0.43 ng/mL (<0.5)
[2022-12-06] MEDS: LEVOTHYROXINE 100 MCG TABLET PO (06:50)
--- NOTE | 2022-12-06 09:23 | CM.DANOTE ---
DCP: Case received, EMR reviewed and met with patient. Introduced self and role. Was able to obtain information regarding patient's baseline activity status prior to hospitalization, as well her current living situation. DCP assessment completed with information currently available. Patient is a 67 year old female who admitted yesterday afternoon to the care of the hospitalist team. PCP: Dr. Gonzalez. Payer: confirmed: [employer] Medicare. Patient came to the hospital via private vehicle, was at the walk in clinic, was sent over here. patient had increased redness, tenderness, to right lower extremity. Patient had been scratched by her cat, and also had a fever of 103. She then developed red streaks spreading to her leg. Patient diagnosed with right leg cellulitis. Met with patient in her room. She is alert and oriented, pleasant. Confirmed that she resides alone in [place], she is a . She has a son in [place], and a daughter in [place]. Patient has a cane and walker, and drives. She indicated that she has a scooter also, but only uses it from her garage (is detached), to her house. Confirmed that she sees Dr. Gonzalez as her primary provider, here at [facility]. P:DCP to continue to follow. Patient should be able to go home when stable, but will need to discuss further at team rounds to see how long she will need to be on IV ABO. Radha Reeves RN/Teacher Lip Reading Discharge Planning/Care Management CM Discharge Assessment Start: 12/06/22 09:19 Freq: Status: Active Protocol: Document 12/06/22 09:19 (Rec: 12/06/22 09:21 [id number]) Discharge Planning Assessment Assigned Mechanic Chief Carole Reeves RN/Teacher Lip Reading Advance Directives? No History Provided By Patient,Medical Record Prior Living Arrangements House Household Members children Type of transporation used prior to Drives own vehicle admit Independent with ADL's Yes Is patient alert and oriented? Yes DME Already Rented / Owned FWW / Walker,Cane,Other Comment Patient also has a scooter for long distances. Barriers to Discharge No Discharge Plan Home Transportation Arrangement Family Referrals Initiated None needed Additional Comment Unless it's determined she needs exterminator helper ABO. Whiteboard Updated in Patient Room with Yes name and ext. # of Mechanic Chief Review Status In Process Next Review Type Continued Stay Review
[2022-12-06] MEDS: INSULIN LISPRO 100 UNIT/ML 3ML VIAL SUBCUT ×4 (09:59→21:38)
[2022-12-06] MEDS: INSULIN GLARGINE 100 UNIT/ML 3ML PEN 40 UNIT SUBCUT (10:00)
[2022-12-06] MEDS: ASPIRIN EC 81 MG TABLET PO (10:02)
[2022-12-06] MEDS: OXYCODONE IR 5 MG TABLET PO ×3 (10:02→21:38)
[2022-12-06] MEDS: ENOXAPARIN 40 MG/0.4 ML SYRINGE SUBCUT (10:03)
[2022-12-06] MEDS: SODIUM CHLORIDE 0.9% FLUSH 10 ML IV ×2 (10:03→21:42)
[2022-12-06] MEDS: VANCOMYCIN 1,000 MG/200 ML PIGGYBACK 200 MG IV ×2 (12:04→19:10)
--- NOTE | 2022-12-06 13:09 | PC.NURSE ---
late entry admit note for 12/05/22 day shift: report from ED: patient is a/o, 67 year old patient who was scratched by her cat approx 4 days prior. she presented to the ED w/ RLE edema, redness and pain. 1700: arrived to the floor via w/c. able to stand up and walk into the bathroom. has a steady gait. reports pain to RLE 8/10. from ankle to below kneecap her RLE is reddened, very swollen, hot to the touch, tender & abraised in several areas. glucose 173, patient states she has not eaten in many hours. carb control diet ordered, ice water offered. PRN oxy given for c/o 8/10 pain to RLE. oriented to room, call light, remote for TV, bed controls. dinner tray ordered, SSI given.
[2022-12-06] MEDS: ONDANSETRON 4 MG/2 ML INJ IV (13:58)
--- NOTE | 2022-12-06 15:12 | PM.PN.1 ---
Subjective Subjective Interval history: 67 DM female admitted with RLE cellulitis. No significant worsening or improvement today. Continues to have pain and sensitivity over the area, difficutly ambulating. Exam Vital Signs (past 8 hours): - 12/06/22 09:00 12/06/22 13:00 12/06/22 08:00 Temperature 98.1 F Pulse Rate 74 Respiratory Rate 18 Blood Pressure 142/53 H Pulse Oximetry 95 96 97 Oxygen Delivery Method Room Air Room Air Oxygen Flow Rate 0 12/06/22 12:51 Temperature 98.2 F Pulse Rate 72 Respiratory Rate 18 Blood Pressure 141/62 H Pulse Oximetry 98 Oxygen Delivery Method Oxygen Flow Rate 0 Oxygen Delivery Method Room Air Oxygen Flow Rate 0 Narrative Exam Narrative: GEN: no acute distress HEENT: moist mucous membranes CV: regular rate and rhythm, no murmurs PULM: clear bilaterally ABD: soft, nontender, nondistended EXT: warm and well perfused, right leg with cicumferential erythema above the ankle that extends above the knee on the inner thigh, notable warmth, tenderness, no fluctuance noted, right knee with normal range of motion NEURO: awake, alert, oriented Objective Labs 12/06/22 05:25 12/06/22 05:25 Labs: Laboratory Results - last 24 hr 12/05/22 12/06/22 12/06/22 15:34 05:25 05:25 WBC 11.5 H RBC 4.18 Hgb 11.9 L Hct 35.4 L MCV 84.8 MCH 28.6 MCHC 33.7 RDW 14.3 Plt Count 227 Neut % (Auto) 70.8 Lymph % (Auto) 20.0 L Elbert % (Auto) 7.2 Eos % (Auto) 1.4 L Baso % (Auto) 0.6 Neut # (Auto) 8200 H Lymph # (Auto) 2300 [place]bert # (Auto) 800 Eos # (Auto) 200 Baso # (Auto) 100 Sodium 130 L Potassium 4.1 Chloride 102 Carbon Dioxide 22 BUN 13 Creatinine 0.47 L Estimated GFR > 60 BUN/Creatinine Ratio 27.7 H Glucose 256 H Calcium 9.3 Magnesium 1.7 Procalcitonin 0.43 SARS-CoV-2 (PCR) Negative PFSH Social History household members: children Smoking Status: Never smoker alcohol intake: former substance use type: does not use Assessment & Plan Assessment & Plan narrative: 1. Right leg cellulitis -secondary to wound from a cat scracth (not cat scratch disease) -given history of diabetes will treat broadly, stable today with antibiotics but continued pain and difficulty with ambulation -for now continue vanco/ceftriaxone -follow up blood cultures -ordered for pain control 2. Type 2 Diabetes -continue insulin with sliding scale, lantus 40 -check glucose achs -A1c pending. 3. Hypothyroidism -continue synthroid 4. Hyponatremia, mild -suspect secondary to hypovolemia from infection -did receive IV fluids -recheck sodium with morning labs I have discussed plan and obtained history from patient. I have discussed plan of care with ED physician and bedside nurse. I have reviewed labs, imaging. CODE: Full Proxy: Benita Verma, daughter Quality VTE Deep Vein Thrombosis/Pulmonary Embolism Present on Admission: No
[2022-12-06] MEDS: ACETAMINOPHEN 325 MG TABLET 650 MG PO (16:16)
[2022-12-06] MEDS: ATORVASTATIN 20 MG TABLET 40 MG PO (17:09)
--- NOTE | 2022-12-06 17:19 | PC.NURSE ---
Assumed care of pt at 1600, A&Ox4, c/o 12/26 pain to RLE at rest. RLE swollen with significant erythema. Pain meds administered per SEP. No c/o SOB or chest pain. N/t to bilat fingertips, otherwise CMS intact. Patient left resting comfortably in bed, call light within reach, bed in low position, bed alarm activated.
[2022-12-06] MEDS: cefTRIAXone 1,000 MG in SODIUM CHLORIDE 0.9% 100 ML 200 MG IV (18:27)
[2022-12-06] MEDS: ALPRAZolam 0.25 MG TABLET PO (21:41)
[2022-12-07] VITALS (11 sets, daily range): BP systolic 143–173; BP diastolic 58–69; PULSE 61–75; RESP 17–18; TEMP 36.2–36.7; O2SAT 96–98
[2022-12-07] MEDS: VANCOMYCIN 1,000 MG/200 ML PIGGYBACK 200 MG IV ×3 (02:57→19:52)
[2022-12-07 06:17] LABS: Add Manual Diff / Slide Review NO; Basophils Absolute Auto 100 /uL (0-100); Basophils Percent Auto 1.1 % (0-2); Eosinophils Absolute Auto 200 /uL (0-450); Eosinophils Percent Auto 2.5 % (2-4); Hematocrit 37.9 % (36-46); Hemoglobin 12.7 g/dL (12.0-16.0); Lymphocytes Absolute Auto 2400 /uL (1100-4500); Lymphocytes Percent Auto 30.9 % (25-40); Mean Corpuscular HGB Conc 33.4 % (30-36); Mean Corpuscular Hemoglobin 28.4 PG (26-34); Mean Corpuscular Volume 85.1 fL (80-100); Monocytes Absolute Auto 600 /uL (0-900); Monocytes Percent Auto 7.6 % (3-14); Neutrophils Absolute Auto 4500 /uL (1500-7000); Neutrophils Percent Auto 57.9 % (50-75); Platelet Count 276 X10^3/uL (150-400); Red Blood Cell Count 4.46 X10^6/uL (4.0-5.2); Red Cell Distribution Width 14.4 % (11.6-14.8); White Blood Cell Count 7.7 X10^3/uL (4.5-11.0)
[2022-12-07 06:28] LABS: BUN Creatinine Ratio 21.6 (6-22); Blood Urea Nitrogen 11 mg/dL (7-17); Carbon Dioxide 25 mmol/L (22-32); Chloride 101 mmol/L (98-107); Estimated Glomerular Filt Rate > 60 mL/min (>60); Glucose 212 mg/dL (80-110); HEMOLYSIS < 15 (0-50); Magnesium 1.7 mg/dL (1.6-2.3); Potassium 4.3 mmol/L (3.4-5.1); Sodium 132 mmol/L (137-145)
[2022-12-07] MEDS: OXYCODONE IR 5 MG TABLET PO ×2 (06:37→18:33)
[2022-12-07] MEDS: LEVOTHYROXINE 100 MCG TABLET PO (06:38)
[2022-12-07] MEDS: ACETAMINOPHEN 325 MG TABLET 650 MG PO (06:38)
[2022-12-07] MEDS: INSULIN GLARGINE 100 UNIT/ML 3ML PEN 45 UNIT SUBCUT (08:05)
[2022-12-07] MEDS: INSULIN LISPRO 100 UNIT/ML 3ML VIAL SUBCUT ×4 (08:06→21:41)
[2022-12-07] MEDS: ENOXAPARIN 40 MG/0.4 ML SYRINGE SUBCUT (08:08)
[2022-12-07] MEDS: ASPIRIN EC 81 MG TABLET PO (08:08)
[2022-12-07] MEDS: SODIUM CHLORIDE 0.9% FLUSH 10 ML IV ×2 (08:09→20:06)
[2022-12-07 10:22] LABS: x Labcorp Estim. Avg Glu (eAG) 280 mg/dL (.); x Labcorp Hemoglobin A1c 11.4 % (4.8-5.6)
[2022-12-07] MEDS: AZITHROMYCIN 250 MG TABLET 500 MG PO (11:54)
[2022-12-07 11:57] LABS: Vancomycin Trough 10.6 ug/mL (10-20)
[2022-12-07] MEDS: VANCOMYCIN TROUGH 1 REQUEST MISC (12:19)
[2022-12-07] MEDS: ATORVASTATIN 20 MG TABLET 40 MG PO (17:19)
--- NOTE | 2022-12-07 17:33 | DIET.CONS ---
Dietary Consultation Note Admission Date: 12/05/2022 16:03 Assessment: 67y F admmitted for R leg cellulitis referred to nutrition for A1c 11.4. Per chart review, pt actively working with PCP Weeks from [address] [place] [address] on DM management. Initial A1c in 06/09 was 12.8, in 11/08 12.0, this hospitalization 12/08 11.4. Pts BGs are coming down but remain well above optimal range and certainly influencing current cellulitis from cat bite. Pt's PCP put in order for CGM which was denied. Recc trying again now that pt hospitalized with cellulitis and hyperglycemia. 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 Pt may benefit from semaglutide and/or meal time insulin as pts BG during hospitalization are 206-303 despite carb consistent diet and insulin therapy. Ht: 149.86 cm Wt: 84.005 kg BMI: 37.4 Last BM: 12/05/22 (12/05/22 16:27) MNA: 10 Aidan Score: 21 Diet: 12/05/22 Dinner Carbohydrate Consistent Diet Diet Modifications: Carbohydrate level: Large (4 CHO) Reflex DM orders: No Nutrition Percent Meal Consumed 75% 12/07/22 12:00 Percent Meal Consumed 100% 12/06/22 18:41 Percent Meal Consumed 100% 12/06/22 14:01 Percent Meal Consumed 100% 12/06/22 10:00 Labs: RBC 4.46 X10^6/uL (4.0-5.2) 12/07/22 06:08 Hgb 12.7 g/dL (12.0-16.0) 12/07/22 06:08 Hct 37.9 % (36-46) 12/07/22 06:08 Creatinine 0.51 mg/dL (0.52-1.04) L 12/07/22 06:08 Lactate 1.2 mmol/L (0.7-2.1) 12/05/22 14:25 Nutrition Diagnosis: altered nutrition related laboratory values (BG, A1C) r/t endocrine dysfunction aeb A1c 11.4 despite pt working closely with PCP to optimize BG, admission for leg cellulitis from cat bite. Pts BGs this hospitalization 206-300 despite insulin therapy and carb controlled diet. Interventions: 1. Continue carb consistent diet with insulin therapy for goal BGs 130-180 2. [facility] referral to outpatient diabetes education. 3. Pt would benefit from continuous glucose monitor and additional DM meds to achieve A1c <8. Monitoring/Evaluations: BGs Electronically Signed by: Jessie Phelps 12/07/22 17:33 Clinical Dietitian [address] [address]
[2022-12-07] MEDS: cefTRIAXone 1,000 MG in SODIUM CHLORIDE 0.9% 100 ML 200 MG IV (18:22)
[2022-12-07] MEDS: ONDANSETRON 4 MG/2 ML INJ IV (18:33)
--- NOTE | 2022-12-07 18:34 | PM.PN.1 ---
Subjective Subjective Interval history: Patient notes not much change in pain and swelling in her right leg. Walking on it causes pain. Exam Vital Signs (past 8 hours): - 12/07/22 12:00 12/07/22 12:00 12/07/22 17:00 Temperature 97.1 F L 97.3 F L Pulse Rate 69 75 Respiratory Rate 17 17 Blood Pressure 148/65 H 170/65 H Pulse Oximetry 96 98 98 Oxygen Delivery Method Room Air Oxygen Flow Rate 0 0 12/07/22 16:00 Temperature Pulse Rate Respiratory Rate Blood Pressure Pulse Oximetry 98 Oxygen Delivery Method Room Air Oxygen Flow Rate Oxygen Delivery Method Room Air Oxygen Flow Rate 0 Narrative Exam Narrative: GEN: no acute distress HEENT: moist mucous membranes CV: regular rate and rhythm, no murmurs PULM: clear bilaterally ABD: soft, nontender, nondistended EXT: warm and well perfused, right leg with cicumferential erythema above the ankle that extends above the knee on the inner thigh, notable warmth, tenderness, no fluctuance noted, right knee with normal range of motion NEURO: awake, alert, oriented Objective Labs 12/07/22 06:08 12/07/22 06:08 Labs: Laboratory Results - last 24 hr 12/06/22 12/07/22 12/07/22 05:25 06:08 06:08 WBC 7.7 RBC 4.46 Hgb 12.7 Hct 37.9 MCV 85.1 MCH 28.4 MCHC 33.4 RDW 14.4 Plt Count 276 Neut % (Auto) 57.9 Lymph % (Auto) 30.9 [place] % (Auto) 7.6 Eos % (Auto) 2.5 Baso % (Auto) 1.1 Neut # (Auto) 4500 Lymph # (Auto) 2400 [place] # (Auto) 600 Eos # (Auto) 200 Baso # (Auto) 100 Sodium 132 L Potassium 4.3 Chloride 101 Carbon Dioxide 25 BUN 11 Creatinine 0.51 L Estimated GFR > 60 BUN/Creatinine Ratio 21.6 Glucose 212 H Hgb A1c (Ref Lab) 11.4 H Estim Average Glucose 280 Calcium 10.0 Magnesium 1.7 Vancomycin Trough 12/07/22 11:30 WBC RBC Hgb Hct MCV MCH MCHC RDW Plt Count Neut % (Auto) Lymph % (Auto) [place] % (Auto) Eos % (Auto) Baso % (Auto) Neut # (Auto) Lymph # (Auto) [place] # (Auto) Eos # (Auto) Baso # (Auto) Sodium Potassium Chloride Carbon Dioxide BUN Creatinine Estimated GFR BUN/Creatinine Ratio Glucose Hgb A1c (Ref Lab) Estim Average Glucose Calcium Magnesium Vancomycin Trough 10.6 PFSH Social History household members: children Smoking Status: Never smoker alcohol intake: former substance use type: does not use Assessment & Plan Assessment & Plan narrative: 1. Right leg cellulitis -secondary to wound from a cat scratch (not cat scratch disease) -given history of diabetes will treat broadly, stable today with antibiotics but continued pain and difficulty with ambulation -continue vanco/ceftriaxone -follow up blood cultures -ordered for pain control -add azithro to cover pathogens potentially caused by cats and due to lack of significant progress in pain and swelling 2. Type 2 Diabetes -continue insulin with sliding scale, lantus 40 -check glucose achs -A1c 11.4% 3. Hypothyroidism -continue synthroid 4. Hyponatremia, mild -suspect secondary to hypovolemia from infection -did receive IV fluids -recheck sodium with morning labs CODE: Full Proxy: Benita Verma, daughter Dispo: Home in 1-2 days. Quality VTE Deep Vein Thrombosis/Pulmonary Embolism Present on Admission: No
[2022-12-07] MEDS: ALPRAZolam 0.25 MG TABLET PO (21:42)
[2022-12-08] VITALS (9 sets, daily range): BP systolic 131–157; BP diastolic 58–87; PULSE 60–82; RESP 17–18; TEMP 36.2–36.5; O2SAT 94–98
[2022-12-08] MEDS: VANCOMYCIN 1,000 MG/200 ML PIGGYBACK 200 MG IV ×3 (03:19→17:59)
[2022-12-08] MEDS: LEVOTHYROXINE 100 MCG TABLET PO (06:21)
[2022-12-08 06:24] LABS: Add Manual Diff / Slide Review NO; Basophils Absolute Auto 100 /uL (0-100); Eosinophils Absolute Auto 200 /uL (0-450); Eosinophils Percent Auto 2.4 % (2-4); Hematocrit 38.1 % (36-46); Hemoglobin 12.8 g/dL (12.0-16.0); Lymphocytes Absolute Auto 2700 /uL (1100-4500); Lymphocytes Percent Auto 36.3 % (25-40); Mean Corpuscular HGB Conc 33.6 % (30-36); Mean Corpuscular Hemoglobin 28.6 PG (26-34); Mean Corpuscular Volume 85.3 fL (80-100); Monocytes Absolute Auto 600 /uL (0-900); Monocytes Percent Auto 8.7 % (3-14); Neutrophils Absolute Auto 3900 /uL (1500-7000); Neutrophils Percent Auto 51.6 % (50-75); Platelet Count 311 X10^3/uL (150-400); Red Blood Cell Count 4.47 X10^6/uL (4.0-5.2); Red Cell Distribution Width 14.2 % (11.6-14.8); White Blood Cell Count 7.5 X10^3/uL (4.5-11.0)
[2022-12-08 06:38] LABS: HEMOLYSIS < 15 (0-50)
[2022-12-08 06:39] LABS: BUN Creatinine Ratio 22.6 (6-22); Blood Urea Nitrogen 14 mg/dL (7-17); Calcium 9.9 mg/dL (8.4-10.2); Carbon Dioxide 29 mmol/L (22-32); Chloride 101 mmol/L (98-107); Estimated Glomerular Filt Rate > 60 mL/min (>60); Glucose 222 mg/dL (80-110); Magnesium 1.7 mg/dL (1.6-2.3); Sodium 132 mmol/L (137-145)
[2022-12-08 07:01] LABS: Potassium 4.4 mmol/L (3.4-5.1)
[2022-12-08] MEDS: INSULIN GLARGINE 100 UNIT/ML 3ML PEN 45 UNIT SUBCUT (08:43)
[2022-12-08] MEDS: INSULIN LISPRO 100 UNIT/ML 3ML VIAL SUBCUT ×4 (08:44→21:56)
[2022-12-08] MEDS: ASPIRIN EC 81 MG TABLET PO (08:51)
[2022-12-08] MEDS: SODIUM CHLORIDE 0.9% FLUSH 10 ML IV ×2 (08:51→21:57)
[2022-12-08] MEDS: AZITHROMYCIN 250 MG TABLET PO (08:56)
[2022-12-08] MEDS: ENOXAPARIN 40 MG/0.4 ML SYRINGE SUBCUT (08:56)
--- NOTE | 2022-12-08 16:05 | P.PN_ITS ---
Subjective Subjective Interval history: Patient says the pain in her right leg hasn't changed much. Redness and swelling is improved though. Exam Vital Signs (past 8 hours): - 12/08/22 12:00 12/08/22 12:00 Temperature 97.2 F L Pulse Rate 60 Respiratory Rate 17 Blood Pressure 144/62 H Pulse Oximetry 95 96 Oxygen Delivery Method Room Air Oxygen Flow Rate 0 0 Oxygen Delivery Method Room Air Oxygen Flow Rate 0 Narrative Exam Narrative: GEN: no acute distress HEENT: moist mucous membranes CV: regular rate and rhythm, no murmurs PULM: clear bilaterally ABD: soft, nontender, nondistended EXT: warm and well perfused, right leg with circumferential erythema above the ankle that extends above the knee on the inner thigh improving, less warmth, still with tenderness, no fluctuance noted, right knee with normal range of motion NEURO: awake, alert, oriented Objective Labs 12/08/22 05:50 12/08/22 05:50 Labs: Laboratory Results - last 24 hr 12/08/22 12/08/22 05:50 05:50 WBC 7.5 RBC 4.47 Hgb 12.8 Hct 38.1 MCV 85.3 MCH 28.6 MCHC 33.6 RDW 14.2 Plt Count 311 Neut % (Auto) 51.6 Lymph % (Auto) 36.3 [place] % (Auto) 8.7 Eos % (Auto) 2.4 Baso % (Auto) 1.0 Neut # (Auto) 3900 Lymph # (Auto) 2700 [place] # (Auto) 600 Eos # (Auto) 200 Baso # (Auto) 100 Sodium 132 L Potassium 4.4 Chloride 101 Carbon Dioxide 29 BUN 14 Creatinine 0.62 Estimated GFR > 60 BUN/Creatinine Ratio 22.6 H Glucose 222 H Calcium 9.9 Magnesium 1.7 PFSH Social History household members: children Smoking Status: Never smoker alcohol intake: former substance use type: does not use Assessment & Plan Assessment & Plan narrative: 1. Right leg cellulitis -secondary to wound from a cat scratch (not cat scratch disease), admitted due to acuity of infection with rapid progression, need to monitor infection progression while on IV abx -given history of diabetes will treat broadly, stable today with antibiotics but continued pain and difficulty with ambulation -continue vanco/ceftriaxone -blood cultures with NG -ordered for pain control -add azithro to cover pathogens potentially caused by cats and due to lack of significant progress in pain and swelling 2. Type 2 Diabetes -continue insulin with sliding scale, lantus 40 -check glucose achs -A1c 11.4% -diabetes education 3. Hypothyroidism -continue synthroid 4. Hyponatremia, mild -suspect secondary to hypovolemia from infection -did receive IV fluids -remains at 132 CODE: Full Proxy: Benita Verma, daughter Dispo: Home on 12/09. Quality VTE Deep Vein Thrombosis/Pulmonary Embolism Present on Admission: No
[2022-12-08] MEDS: OXYCODONE IR 5 MG TABLET PO (16:15)
[2022-12-08] MEDS: ATORVASTATIN 20 MG TABLET 40 MG PO (16:15)
[2022-12-08] MEDS: ONDANSETRON 4 MG/2 ML INJ IV (17:10)
[2022-12-08] MEDS: cefTRIAXone 1,000 MG in SODIUM CHLORIDE 0.9% 100 ML 200 MG IV (17:10)
[2022-12-09 00:09] VITALS: O2SAT 94
[2022-12-09] MEDS: VANCOMYCIN 1,000 MG/200 ML PIGGYBACK 200 MG IV ×2 (03:02→11:01)
[2022-12-09 04:00] VITALS: BP 152/63; PULSE 70; RESP 18; TEMP 36.2; O2SAT 96
[2022-12-09] MEDS: LEVOTHYROXINE 100 MCG TABLET PO (06:57)
[2022-12-09 08:00] VITALS: BP 120/75; PULSE 68; RESP 17; TEMP 36.4; O2SAT 95
[2022-12-09] MEDS: AZITHROMYCIN 250 MG TABLET PO (09:16)
[2022-12-09] MEDS: ENOXAPARIN 40 MG/0.4 ML SYRINGE SUBCUT (09:16)
[2022-12-09] MEDS: INSULIN GLARGINE 100 UNIT/ML 3ML PEN 45 UNIT SUBCUT (09:17)
[2022-12-09] MEDS: INSULIN LISPRO 100 UNIT/ML 3ML VIAL SUBCUT ×2 (09:19→12:11)
[2022-12-09] MEDS: SODIUM CHLORIDE 0.9% FLUSH 10 ML IV (09:20)
[2022-12-09] MEDS: ASPIRIN EC 81 MG TABLET PO (09:20)
--- NOTE | 2022-12-09 11:19 | P.DS_ITS ---
History of Present Illness History of Present Illness Date Patient Seen: 12/05/22 Time Patient Seen: 22:00 Chief complaint: per pt rt leg infection Narrative: Ms. Gastelum is a 67W with PMH DM, hypothyroidism who presents with a warm, painful right leg. She did get a scratch from a cat a few days ago on her lower leg. Since then she has had progressive swelling, erythema, and pain. She has noted a fever and chills. In the ED workup was done, vitals notable for afebrile, heart rate in the 70s, blood pressure 190s/70s, sats 96% on room air. Labs reviewed by me and notable for WBC 14.3, hgb 13, plts 255. Na 131, k 3.9, creatinine 0.40. Lactate 1.2. She was ordered for antibiotics and IV fluids and admitted for treatment of her cellulitis Discharge Providers Provider Date of admission: 12/08/22 10:35 Discharge Date: 12/09/22 Primary care physician: Hali Gonzalez DO Consults: 12/07/22 10:26 Consult to Dietitian, Adult Routine Comment: Reason For Exam: A1c 11% Discharge provider: Efra Varela DO Summary Hospital Course Discharge Diagnosis: 1. Right leg cellulitis -secondary to wound from a cat scratch (not cat scratch disease), admitted due to acuity of infection with rapid progression, need to monitor infection progression while on IV abx -given history of diabetes will treat broadly, stable today with antibiotics but continued pain and difficulty with ambulation -continue vanco/ceftriaxone -blood cultures with NG -ordered for pain control -add azithro to cover pathogens potentially caused by cats and due to lack of significant progress in pain and swelling 2. Type 2 Diabetes -continue insulin with sliding scale, lantus 40 -check glucose achs -A1c 11.4% -diabetes education 3. Hypothyroidism -continue synthroid 4. Hyponatremia, mild -suspect secondary to hypovolemia from infection -did receive IV fluids -remains at 132 Hospital Course: Admitted for RLE cellulitis from cat scratch. Put on vanc, zosyn and azithro. Improved slowly and discharged home on po linezolid for 10 days to finish 14 day course. Working with PCP to improve her DM2 as her A1c was 11.4%. Time Spent with Patient Time spent: Greater than 30 minutes Exam Vital Signs (past 8 hours): - 12/09/22 04:00 12/09/22 04:00 12/09/22 08:00 Temperature 97.1 F L 97.5 F L Pulse Rate 70 68 Respiratory Rate 18 17 Blood Pressure 152/63 H 120/75 Pulse Oximetry 96 96 95 Oxygen Delivery Method Room Air Oxygen Flow Rate 0 0 12/09/22 08:00 Temperature Pulse Rate Respiratory Rate Blood Pressure Pulse Oximetry 95 Oxygen Delivery Method Room Air Oxygen Flow Rate 0 Oxygen Delivery Method Room Air Oxygen Flow Rate 0 Narrative Exam Narrative: GEN: no acute distress HEENT: moist mucous membranes CV: regular rate and rhythm, no murmurs PULM: clear bilaterally ABD: soft, nontender, nondistended EXT: warm and well perfused, right leg with circumferential erythema above the ankle that extends above the knee on the inner thigh improving, less warmth, still with tenderness, no fluctuance noted, right knee with normal range of motion NEURO: awake, alert, oriented Objective Labs 12/08/22 05:50 12/08/22 05:50 [facility] Social History household members: children Smoking Status: Never smoker alcohol intake: former substance use type: does not use Discharge Plan Discharge Plan Patient Disposition: Home Provider Discharge Comment: You were admitted for worsening cellulitis of the right leg from a cat scratch. You improved on IV antibiotics and will now need to finish a course of oral antibiotics at home. I've sent some pain meds and anti-nausea meds for you as well. Please don't take tramadol while on the antibi otics as they can interact. Discharge orders & Medications Prescriptions: New azithromycin [Zithromax Z-Brandon] 250 mg Tablet 250 mg PO DAILY 2 Days Qty: 2 0RF Rx Instructions: start on 12/10 oxycodone-acetaminophen [Percocet] 5-325 mg tablet 1 tab PO Q4-6H PRN (Reason: pain) Qty: 20 0RF ondansetron 4 mg tablet,disintegrating 4 mg PO Q4-6H PRN (Reason: nausea and vomiting) Qty: 20 0RF linezolid 600 mg tablet 600 mg PO BID 10 Days Qty: 20 0RF Rx Instructions: start on 12/10 Continued (DME) blood-glucose meter Kit See Rx Instructions .ROUTE .MEDSUPPLY Qty: 1 0RF Rx Instructions: Use to test blood glucose BID (DME) lancets [BD Ultra Fine Lancets] 33 gauge misc See Rx Instructions .ROUTE .MEDSUPPLY Qty: 100 0RF Patient Comments: Pt using until continuous blood-glucose meter is set-up Rx Instructions: Use to test blood glucose twice daily (DME) Blood Glucose Test Strip See Rx Instructions .ROUTE .MEDSUPPLY Qty: 100 0RF Rx Instructions: Use to test blood glucose twice daily. insulin glargine [Lantus Solostar U-100 Insulin] 100 unit/mL (3 mL) insulin pen See Rx Instructions .ROUTE .COMPLEX Qty: 15 6RF Dose Instruction: INJECT 30 UNITS SUBCUTANEOUSLY DAILY Rx Instructions: INJECT 40 UNITS SUBCUTANEOUSLY DAILY (DME) Dexcom G6 Information Broker Misc See Rx Instructions .ROUTE .MEDSUPPLY Qty: 1 0RF Patient Comments: Pt has not setup meter yet but has recieved in mail to start Rx Instructions: USE FOR CONTINUOUS GLUCOSE MONITORING. REPLACE IN 1 YEAR. (DME) Dexcom G6 Sensor Device See Rx Instructions .ROUTE .MEDSUPPLY Qty: 3 12RF Patient Comments: Pt has not setup unit for use yet Rx Instructions: USE FOR CONTINUOUS GLUCOSE MONITORING. REPLACE EVERY 10 DAYS. (DME) Dexcom G6 Transmitter Device See Rx Instructions .ROUTE .MEDSUPPLY Qty: 1 3RF Patient Comments: Pt has not setup unit for use yet Rx Instructions: USE FOR CONTINUOUS GLUCOSE MONITORING. REPLACE EVERY 3 MONTHS. atorvastatin 40 mg tablet 40 mg PO QPM lisinopril 20 mg tablet 20 mg PO DAILY aspirin [Kenny Low Dose Aspirin] 81 mg tablet,delayed release (DR/EC) 81 mg PO DAILY tramadol 50 mg tablet 50 mg PO Q6H PRN (Reason: Pain, Moderate) levothyroxine 100 mcg tablet 100 mcg PO DAILY alprazolam 0.25 mg tablet 0.25 mg PO DAILY PRN (Reason: anxiety, sleep) metformin 1,000 mg tablet 1,000 mg PO BID (DME) Disabled Parking Permit See Rx Instructions .ROUTE .MEDSUPPLY Qty: 1 0RF Rx Instructions: Valid for 5 years Follow up/Referrals: Hali oGnzalez DO [Primary Care Provider] - 12/18/22 9:30 am (Appt:12/18 @ 9:30 with please arrive 15 minutes prior to scheduled appointment time) Visit Report/Discharge Packet Instructions: DI for Cellulitis -- Adult, DI for Animal Bites, Ondansetron, Linezolid, Oxycodone, Azithromycin Stand Alone Forms: Patient Portal/API, Stroke Signs & Symptoms Discharge Data Primary Care Provider: Hali Gonzalez Discharges patient from system. Discharge Date/Time: 12/09/22 14:16 Quality VTE Deep Vein Thrombosis/Pulmonary Embolism Present on Admission: No
[2022-12-09 12:00] VITALS: O2SAT 95
[2022-12-09] MEDS: cefTRIAXone 2,000 MG in SODIUM CHLORIDE 0.9% 100 ML 200 MG IV (12:20)
--- NOTE | 2022-12-09 14:08 | PC.NURSE ---
Pt is dressed and ready for discharge home with Son Mehul. IV has been removed. Went over d/c instructions with Pt and Son-discussed d/c meds, time of last dose, reviewed stroke education, s/s of infection and observing infection area to be sure it doesn't get worse, taking her full course of abx as ordered, no driving while on narcotics, drinking plenty of fluids to prevent constipation or dehydration and follow up appt. which has already been made. Pt denied further questions and was taken out via w/c by TECHNOLOGY LEAD to POV with Son and all belongings.
== END 2022-12-09 14:16 | disposition home or self-care (01) | DRG 603 ==
LOC: ED 15:20 → AC 16:04
PROVIDERS: Admitting Provider Internal Medicine; Emergency Provider Emergency Medicine; PCP Family Medicine; Visit Provider Internal Medicine
DX: L03.115 Cellulitis of right lower limb (principal); E87.1 Hypo-osmolality and hyponatremia; E11.9 Type 2 diabetes mellitus without complications; E03.9 Hypothyroidism, unspecified; W55.03XA Scratched by cat, initial encounter; Z79.4 Long term (current) use of insulin; Z79.84 Long term (current) use of oral hypoglycemic drugs; Z20.822 Contact with and (suspected) exposure to COVID-19
CPT/HCPCS: 36415; 80048; 80053; 80202; 82962; 83036; 83605; 83735; 84145; 85025; 87040; 87635; 96365; 96366; 99284; C9803; G0378; J0696; J1650; J1815; J2405

== ENCOUNTER → 2023-01-22 10:09 | Outpatient (CLI) | payer MEDICARE, SELFPAY ==
[2023-01-05 12:50] VITALS: BMI 37.4
== END ==
PROVIDERS: PCP Family Medicine; Referring Provider Family Medicine; Visit Provider Physician Assistant
DX: S91.302A Unspecified open wound, left foot, initial encounter (principal); S91.332A Puncture wound without foreign body, left foot, initial encounter; L08.9 Local infection of the skin and subcutaneous tissue, unspecified; R60.0 Localized edema; E11.51 Type 2 diabetes mellitus with diabetic peripheral angiopathy without gangrene; I65.29 Occlusion and stenosis of unspecified carotid artery; I10 Essential (primary) hypertension; E78.5 Hyperlipidemia, unspecified; E66.9 Obesity, unspecified; Z68.39 Body mass index [BMI] 39.0-39.9, adult; Z79.4 Long term (current) use of insulin; Z79.84 Long term (current) use of oral hypoglycemic drugs
CPT/HCPCS: 11042; 73630; 87070; 87075; 87077; 87147; 87186; 87205; 99214

== ENCOUNTER → 2023-01-22 12:02 | Outpatient (CLI) | payer MEDICARE, SELFPAY ==
[2023-01-05 12:50] VITALS: BMI 37.4
--- NOTE | 2023-01-22 12:03 | DI.RAD.S_ITS ---
PROCEDURE: XR FOOT LT MIN 3V INDICATIONS: Wound to left foot TECHNIQUE: 3 views of the foot were acquired. COMPARISON: [facility], CR, XR FOOT RT MIN 3V, 11/06/2022, 10:27. FINDINGS: Bones: No fractures or dislocations. No suspicious bony lesions. Calcaneal spurs noted. Enthesophyte noted at the base of the 5th metatarsal. Soft tissues: No tibiotalar joint effusion. Achilles tendon appears normal. IMPRESSION: Degenerative changes without fracture or foreign body Approved by: Tino Macias M.D. on 01/22/2023 at 18:31
== END ==
PROVIDERS: PCP Family Medicine; Referring Provider Physician Assistant; Visit Provider Physician Assistant
DX: S91.302A Unspecified open wound, left foot, initial encounter (principal)
CPT/HCPCS: 73630

== ENCOUNTER → 2023-01-29 11:08 | Outpatient (CLI) | payer MEDICARE, SELFPAY ==
[2023-01-05 12:50] VITALS: BMI 37.4
== END ==
PROVIDERS: PCP Family Medicine; Referring Provider Family Medicine; Visit Provider Physician Assistant
DX: E11.628 Type 2 diabetes mellitus with other skin complications (principal); S91.302A Unspecified open wound, left foot, initial encounter; S91.332A Puncture wound without foreign body, left foot, initial encounter
CPT/HCPCS: 11042

== ENCOUNTER → 2023-02-05 | Outpatient (CLI) | payer MEDICARE, SELFPAY ==
[2023-01-05 12:50] VITALS: BMI 37.4
== END ==
LOC: WC 10:44
PROVIDERS: PCP Family Medicine; Referring Provider Family Medicine; Visit Provider Physician Assistant
DX: S91.302A Unspecified open wound, left foot, initial encounter (principal); W54.1XXA Struck by dog, initial encounter
CPT/HCPCS: 11042

== ENCOUNTER → 2023-02-12 10:27 | Outpatient (CLI) | payer MEDICARE, SELFPAY ==
[2023-01-05 12:50] VITALS: BMI 37.4
== END ==
PROVIDERS: PCP Family Medicine; Referring Provider Family Medicine; Visit Provider Physician Assistant
DX: S91.302A Unspecified open wound, left foot, initial encounter (principal); R60.0 Localized edema; L53.9 Erythematous condition, unspecified
CPT/HCPCS: 87070; 87075; 87077; 87147; 87186; 87205; 99213

== ENCOUNTER → 2023-02-24 12:44 | Outpatient (CLI) | payer MEDICARE, SELFPAY ==
[2023-01-05 12:50] VITALS: BMI 37.4
--- NOTE | 2023-02-24 12:47 | DI.RAD.S_ITS ---
PROCEDURE: XR FOOT LT MIN 3V INDICATIONS: left foot pain, r/o osteomyelitis TECHNIQUE: 3 views of the foot were acquired. COMPARISON: [facility], CR, XR FOOT LT MIN 3V, 01/22/2023, 12:16. FINDINGS: Bones: No fractures or dislocations. Osteoarthritic changes are noted throughout left foot joints with joint space narrowing, subchondral sclerosis and marginal osteophyte formation. Well-defined plantar and dorsal calcaneal enthesophytes are also seen. No suspicious bony lesions. Soft tissues: No tibiotalar joint effusion. Achilles tendon appears normal. IMPRESSION: Moderate left foot joint osteoarthritis. No fracture or dislocation. No signs of healing fracture. Dictated by: Arthur Barreto M.D. on 02/24/2023 at 16:08 Approved by: Arthur Barreto M.D. on 02/24/2023 at 16:09
[2023-02-24 13:22] LABS: Hematocrit 41.8 % (36-46); Hemoglobin 13.9 g/dL (12.0-16.0); Mean Corpuscular HGB Conc 33.2 % (30-36); Mean Corpuscular Hemoglobin 28.4 PG (26-34); Mean Corpuscular Volume 85.7 fL (80-100); Platelet Count 273 X10^3/uL (150-400); Red Blood Cell Count 4.88 X10^6/uL (4.0-5.2); Red Cell Distribution Width 14.6 % (11.6-14.8); White Blood Cell Count 7.6 X10^3/uL (4.5-11.0)
[2023-02-24 13:45] LABS: BUN Creatinine Ratio 29.5 (6-22); Blood Urea Nitrogen 13 mg/dL (7-17); Calcium 10.1 mg/dL (8.4-10.2); Carbon Dioxide 28 mmol/L (22-32); Chloride 102 mmol/L (98-107); Cholesterol 224 mg/dL (140-199); Estimated Glomerular Filt Rate > 60 mL/min (>60); Glucose 201 mg/dL (80-110); HDL Cholesterol 42 mg/dL (40-60); HEMOLYSIS < 15 (0-50); LDL Cholesterol Calculated 152 mg/dL (<100); Sodium 135 mmol/L (137-145); Triglycerides 148 mg/dL (35-150)
[2023-02-24 16:52] LABS: Creatinine Urine Random 138.2 mg/dL
[2023-02-24 16:57] LABS: Microalbumi Creatinin Ratio Ur 26.7 ug/mg CR (<30); Microalbumin Urine Random 3.7 mg/dL (0-1.6)
[2023-02-27 04:12] LABS: Labcorp Hemoglobin (Hb) A1c 10.5 % (4.8-5.6)
== END ==
PROVIDERS: PCP Family Medicine; Referring Provider Family Medicine; Visit Provider Family Medicine
DX: I10 Essential (primary) hypertension; E87.1 Hypo-osmolality and hyponatremia; L03.90 Cellulitis, unspecified; E11.69 Type 2 diabetes mellitus with other specified complication; E11.628 Type 2 diabetes mellitus with other skin complications; M19.072 Primary osteoarthritis, left ankle and foot; M77.32 Calcaneal spur, left foot; Z79.4 Long term (current) use of insulin
CPT/HCPCS: 36415; 73630; 80048; 80061; 82043; 82570; 83036; 84443; 85027

== ENCOUNTER → 2023-02-26 11:59 | Outpatient (CLI) | payer MEDICARE, SELFPAY ==
[2023-01-05 12:50] VITALS: BMI 37.4
== END ==
PROVIDERS: PCP Family Medicine; Referring Provider Family Medicine; Visit Provider Surgery
DX: S91.302A Unspecified open wound, left foot, initial encounter (principal); G62.9 Polyneuropathy, unspecified; R60.0 Localized edema; E11.628 Type 2 diabetes mellitus with other skin complications
CPT/HCPCS: 11042; 99213; 99214

== ENCOUNTER → 2023-03-05 11:42 | Outpatient (CLI) | payer MEDICARE, SELFPAY ==
[2023-01-05 12:50] VITALS: BMI 37.4
== END ==
PROVIDERS: PCP Family Medicine; Referring Provider Family Medicine; Visit Provider Physician Assistant
DX: S91.302A Unspecified open wound, left foot, initial encounter (principal); E11.628 Type 2 diabetes mellitus with other skin complications; I73.9 Peripheral vascular disease, unspecified
CPT/HCPCS: 11042; 99214

== ENCOUNTER → 2023-03-12 11:43 | Outpatient (CLI) | payer MEDICARE, SELFPAY ==
[2023-01-05 12:50] VITALS: BMI 37.4
== END ==
PROVIDERS: PCP Family Medicine; Referring Provider Family Medicine; Visit Provider Physician Assistant
DX: S91.302A Unspecified open wound, left foot, initial encounter (principal); W54.1XXA Struck by dog, initial encounter; E11.628 Type 2 diabetes mellitus with other skin complications; R60.0 Localized edema; L53.9 Erythematous condition, unspecified
CPT/HCPCS: 11042; 99213

== ENCOUNTER → 2023-03-26 11:02 | Outpatient (CLI) | payer MEDICARE, SELFPAY ==
[2023-01-05 12:50] VITALS: BMI 37.4
== END ==
PROVIDERS: PCP Family Medicine; Referring Provider Family Medicine; Visit Provider Physician Assistant
DX: E11.621 Type 2 diabetes mellitus with foot ulcer (principal); L97.522 Non-pressure chronic ulcer of other part of left foot with fat layer exposed; M79.672 Pain in left foot; R60.0 Localized edema; L53.9 Erythematous condition, unspecified
CPT/HCPCS: 97597; 99213

== ENCOUNTER → 2023-03-31 11:22 | Outpatient (CLI) | payer MEDICARE, SELFPAY ==
[2023-01-05 12:50] VITALS: BMI 37.4
--- NOTE | 2023-03-31 11:23 | DI.US.S_ITS ---
PROCEDURE: US ARTERIAL DUPLEX LE LT INDICATIONS: non-healing ulcer on left foot TECHNIQUE: Color and pulse Doppler interrogation was performed of the left lower extremity arterial system, with image documentation. COMPARISON: None. FINDINGS: Common femoral artery: 118 cm/sec, with triphasic flow. Deep femoral artery: 97 cm/sec, with monophasic flow. Proximal superficial femoral artery: 57 cm/sec, with monophasic flow. Mid superficial femoral artery: 274 cm/sec, with monophasic flow. Distal superficial femoral artery: 82 cm/sec, with monophasic flow. Popliteal artery: 54 cm/sec, with monophasic flow. Posterior tibial artery: 59 cm/sec, with monophasic flow. Anterior tibial artery/dorsalis pedis: 53 cm/sec, with monophasic flow. The dorsalis pedis artery is not well seen. Torres-scale imaging description: Diffuse plaque with apparent stenosis at the mid and distal SFA In the left popliteal fossa medially there is a fluid collection measuring 1.6 x 1.7 x 3.6 cm with debris consistent with a Vásquez's cyst. IMPRESSION: Elevated velocities consistent with 50-99% stenosis of the mid and distal left SFA. Dictated by: Yuniel Price M.D. on 03/31/2023 at 13:33 Approved by: Yuniel Price M.D. on 03/31/2023 at 13:37
== END ==
PROVIDERS: PCP Family Medicine; Referring Provider Physician Assistant; Visit Provider Physician Assistant
DX: E11.621 Type 2 diabetes mellitus with foot ulcer (principal); L97.529 Non-pressure chronic ulcer of other part of left foot with unspecified severity
CPT/HCPCS: 93926

== ENCOUNTER → 2023-04-02 11:39 | Outpatient (CLI) | payer MEDICARE, SELFPAY ==
[2023-01-05 12:50] VITALS: BMI 37.4
== END ==
PROVIDERS: PCP Family Medicine; Referring Provider Family Medicine; Visit Provider Physician Assistant
DX: E11.621 Type 2 diabetes mellitus with foot ulcer (principal); L97.522 Non-pressure chronic ulcer of other part of left foot with fat layer exposed; L03.115 Cellulitis of right lower limb; R60.0 Localized edema; L53.9 Erythematous condition, unspecified; E78.5 Hyperlipidemia, unspecified; I10 Essential (primary) hypertension; I73.9 Peripheral vascular disease, unspecified; I65.29 Occlusion and stenosis of unspecified carotid artery; L97.812 Non-pressure chronic ulcer of other part of right lower leg with fat layer exposed
CPT/HCPCS: 11042; 99214

== ENCOUNTER → 2023-04-16 11:15 | Outpatient (CLI) | payer MEDICARE, SELFPAY ==
[2023-01-05 12:50] VITALS: BMI 37.4
== END ==
PROVIDERS: PCP Family Medicine; Referring Provider Family Medicine; Visit Provider Physician Assistant
DX: L03.115 Cellulitis of right lower limb (principal); S81.801A Unspecified open wound, right lower leg, initial encounter; E11.628 Type 2 diabetes mellitus with other skin complications; E11.51 Type 2 diabetes mellitus with diabetic peripheral angiopathy without gangrene; M79.672 Pain in left foot; R60.0 Localized edema; L53.9 Erythematous condition, unspecified
CPT/HCPCS: 11042; 99213

== ENCOUNTER → 2023-04-30 11:19 | Outpatient (CLI) | payer MEDICARE, SELFPAY ==
[2023-01-05 12:50] VITALS: BMI 37.4
== END ==
PROVIDERS: PCP Family Medicine; Referring Provider Family Medicine; Visit Provider Surgery
DX: L03.115 Cellulitis of right lower limb (principal); L97.812 Non-pressure chronic ulcer of other part of right lower leg with fat layer exposed; M79.604 Pain in right leg; R60.0 Localized edema
CPT/HCPCS: 11042; 99213; 99214

== ENCOUNTER → 2023-05-21 11:35 | Outpatient (CLI) | payer MEDICARE, SELFPAY ==
[2023-01-05 12:50] VITALS: BMI 37.4
== END ==
PROVIDERS: PCP Family Medicine; Referring Provider Family Medicine; Visit Provider Physician Assistant
DX: E11.622 Type 2 diabetes mellitus with other skin ulcer (principal); L97.822 Non-pressure chronic ulcer of other part of left lower leg with fat layer exposed; L97.812 Non-pressure chronic ulcer of other part of right lower leg with fat layer exposed; R60.0 Localized edema; L53.9 Erythematous condition, unspecified; M79.605 Pain in left leg; M79.604 Pain in right leg
CPT/HCPCS: 11042; 97597; 99214

== ENCOUNTER → 2023-05-31 16:21 | Outpatient (CLI) | payer MEDICARE, SELFPAY ==
[2023-01-05 12:50] VITALS: BMI 37.4
[2023-05-31 17:51] LABS: Hemoglobin A1C% w Est Avg Glu 10.5 % (4.0-6.0)
== END ==
PROVIDERS: PCP Family Medicine; Referring Provider Family Medicine; Visit Provider Family Medicine
DX: E11.65 Type 2 diabetes mellitus with hyperglycemia (principal)
CPT/HCPCS: 36415; 83036

== ENCOUNTER → 2023-06-22 10:36 | Outpatient (CLI) | payer MEDICARE, SELFPAY ==
[2023-01-05 12:50] VITALS: BMI 37.4
== END ==
PROVIDERS: PCP Family Medicine; Referring Provider Family Medicine; Visit Provider Surgery
DX: E11.622 Type 2 diabetes mellitus with other skin ulcer (principal); L97.812 Non-pressure chronic ulcer of other part of right lower leg with fat layer exposed; R60.0 Localized edema; L53.9 Erythematous condition, unspecified
CPT/HCPCS: 11042; 87070; 87077; 87147; 87186; 87205; 99213

== ENCOUNTER → 2023-06-30 13:45 | Outpatient (CLI) | payer MEDICARE, SELFPAY ==
[2023-01-05 12:50] VITALS: BMI 37.4
== END ==
PROVIDERS: PCP Family Medicine; Referring Provider Family Medicine; Visit Provider Surgery
DX: E11.622 Type 2 diabetes mellitus with other skin ulcer (principal); L97.312 Non-pressure chronic ulcer of right ankle with fat layer exposed; L97.322 Non-pressure chronic ulcer of left ankle with fat layer exposed; R60.0 Localized edema; L53.9 Erythematous condition, unspecified
CPT/HCPCS: 99212; 99213

== ENCOUNTER → 2023-07-07 14:04 | Outpatient (CLI) | payer MEDICARE, SELFPAY ==
[2023-01-05 12:50] VITALS: BMI 37.4
== END ==
PROVIDERS: PCP Family Medicine; Referring Provider Family Medicine; Visit Provider Surgery
DX: E11.622 Type 2 diabetes mellitus with other skin ulcer (principal); L97.812 Non-pressure chronic ulcer of other part of right lower leg with fat layer exposed; L97.822 Non-pressure chronic ulcer of other part of left lower leg with fat layer exposed; R60.0 Localized edema; L53.9 Erythematous condition, unspecified
CPT/HCPCS: 99213; 99214

== ENCOUNTER → 2023-07-21 13:46 | Outpatient (CLI) | payer MEDICARE, SELFPAY ==
[2023-01-05 12:50] VITALS: BMI 37.4
== END ==
PROVIDERS: PCP Family Medicine; Referring Provider Family Medicine; Visit Provider Surgery
DX: E11.622 Type 2 diabetes mellitus with other skin ulcer (principal); L97.822 Non-pressure chronic ulcer of other part of left lower leg with fat layer exposed; R60.0 Localized edema; L53.9 Erythematous condition, unspecified; I10 Essential (primary) hypertension; E78.5 Hyperlipidemia, unspecified; I25.10 Atherosclerotic heart disease of native coronary artery without angina pectoris; I73.9 Peripheral vascular disease, unspecified
CPT/HCPCS: 97597; 99212; 99213

== ENCOUNTER → 2023-07-28 15:04 | Outpatient (CLI) | payer MEDICARE, SELFPAY ==
[2023-01-05 12:50] VITALS: BMI 37.4
== END ==
PROVIDERS: PCP Family Medicine; Referring Provider Family Medicine; Visit Provider Surgery
DX: E11.622 Type 2 diabetes mellitus with other skin ulcer (principal); L97.822 Non-pressure chronic ulcer of other part of left lower leg with fat layer exposed; R60.0 Localized edema; L08.9 Local infection of the skin and subcutaneous tissue, unspecified; E11.51 Type 2 diabetes mellitus with diabetic peripheral angiopathy without gangrene; I10 Essential (primary) hypertension; E78.5 Hyperlipidemia, unspecified; I65.29 Occlusion and stenosis of unspecified carotid artery; Z91.148 Patient's other noncompliance with medication regimen for other reason; Z91.199 Patient's noncompliance with other medical treatment and regimen due to unspecified reason
CPT/HCPCS: 97602; 99213

== ENCOUNTER → 2023-08-11 14:15 | Outpatient (CLI) | payer MEDICARE, SELFPAY ==
[2023-01-05 12:50] VITALS: BMI 37.4
== END ==
PROVIDERS: PCP Family Medicine; Referring Provider Family Medicine; Visit Provider Surgery
DX: E11.622 Type 2 diabetes mellitus with other skin ulcer (principal); L97.822 Non-pressure chronic ulcer of other part of left lower leg with fat layer exposed; R60.0 Localized edema; L53.9 Erythematous condition, unspecified; I10 Essential (primary) hypertension; E78.5 Hyperlipidemia, unspecified; L03.116 Cellulitis of left lower limb; I73.9 Peripheral vascular disease, unspecified
CPT/HCPCS: 11042

== ENCOUNTER → 2023-08-16 13:20 | Outpatient (CLI) | payer MEDICARE, SELFPAY ==
[2023-01-05 12:50] VITALS: BMI 37.4
== END ==
PROVIDERS: PCP Family Medicine; Referring Provider Family Medicine; Visit Provider Surgery
DX: E11.622 Type 2 diabetes mellitus with other skin ulcer (principal); L97.822 Non-pressure chronic ulcer of other part of left lower leg with fat layer exposed; R60.0 Localized edema; L53.9 Erythematous condition, unspecified; I10 Essential (primary) hypertension; E78.5 Hyperlipidemia, unspecified; I73.9 Peripheral vascular disease, unspecified
CPT/HCPCS: 11042; 99213

== ENCOUNTER → 2023-08-24 14:49 | Outpatient (CLI) | payer MEDICARE, SELFPAY ==
[2023-01-05 12:50] VITALS: BMI 37.4
== END ==
PROVIDERS: PCP Family Medicine; Referring Provider Family Medicine; Visit Provider Surgery
DX: E11.622 Type 2 diabetes mellitus with other skin ulcer (principal); L97.822 Non-pressure chronic ulcer of other part of left lower leg with fat layer exposed; R60.0 Localized edema; I10 Essential (primary) hypertension; I73.9 Peripheral vascular disease, unspecified; E78.5 Hyperlipidemia, unspecified; I65.29 Occlusion and stenosis of unspecified carotid artery
CPT/HCPCS: 97602; 99213

== ENCOUNTER → 2023-08-31 14:41 | Outpatient (CLI) | payer MEDICARE, SELFPAY ==
[2023-01-05 12:50] VITALS: BMI 37.4
== END ==
PROVIDERS: PCP Family Medicine; Referring Provider Family Medicine; Visit Provider Surgery
DX: E11.622 Type 2 diabetes mellitus with other skin ulcer (principal); L97.822 Non-pressure chronic ulcer of other part of left lower leg with fat layer exposed; R60.0 Localized edema; I73.9 Peripheral vascular disease, unspecified; I10 Essential (primary) hypertension; E78.5 Hyperlipidemia, unspecified; I25.10 Atherosclerotic heart disease of native coronary artery without angina pectoris; L03.116 Cellulitis of left lower limb
CPT/HCPCS: 29581; 99213

== ENCOUNTER → 2023-10-06 13:40 | Outpatient (CLI) | payer MEDICARE, SELFPAY ==
[2023-01-05 12:50] VITALS: BMI 37.4
== END ==
PROVIDERS: PCP Family Medicine; Referring Provider Family Medicine; Visit Provider Surgery
DX: E11.622 Type 2 diabetes mellitus with other skin ulcer (principal); L97.821 Non-pressure chronic ulcer of other part of left lower leg limited to breakdown of skin; L03.116 Cellulitis of left lower limb; I73.9 Peripheral vascular disease, unspecified; R60.0 Localized edema; L53.9 Erythematous condition, unspecified; I10 Essential (primary) hypertension; E78.5 Hyperlipidemia, unspecified
CPT/HCPCS: 87070; 87075; 87147; 87186; 87205; 97597; 99213

== ENCOUNTER → 2023-10-13 13:00 | Outpatient (CLI) | payer MEDICARE, SELFPAY ==
[2023-01-05 12:50] VITALS: BMI 37.4
== END ==
PROVIDERS: PCP Family Medicine; Referring Provider Family Medicine; Visit Provider Surgery
DX: L97.822 Non-pressure chronic ulcer of other part of left lower leg with fat layer exposed (principal); E11.622 Type 2 diabetes mellitus with other skin ulcer; L03.116 Cellulitis of left lower limb; I73.9 Peripheral vascular disease, unspecified; R60.0 Localized edema; L53.9 Erythematous condition, unspecified; I10 Essential (primary) hypertension; E78.5 Hyperlipidemia, unspecified; Z79.2 Long term (current) use of antibiotics
CPT/HCPCS: 99212; 99213

== ENCOUNTER → 2023-10-20 12:59 | Outpatient (CLI) | payer MEDICARE, SELFPAY ==
[2023-01-05 12:50] VITALS: BMI 37.4
== END ==
LOC: WC 13:00
PROVIDERS: PCP Family Medicine; Referring Provider Family Medicine; Visit Provider Surgery
DX: E11.622 Type 2 diabetes mellitus with other skin ulcer (principal); L97.822 Non-pressure chronic ulcer of other part of left lower leg with fat layer exposed; I73.9 Peripheral vascular disease, unspecified; R60.0 Localized edema; L03.116 Cellulitis of left lower limb; I10 Essential (primary) hypertension; E78.5 Hyperlipidemia, unspecified
CPT/HCPCS: 11042

== ENCOUNTER → 2023-11-03 13:33 | Outpatient (CLI) | payer MEDICARE, SELFPAY ==
[2023-01-05 12:50] VITALS: BMI 37.4
== END ==
LOC: WC 13:33
PROVIDERS: PCP Family Medicine; Referring Provider Family Medicine; Visit Provider Surgery
DX: Z09 Encounter for follow-up examination after completed treatment for conditions other than malignant neoplasm (principal); Z86.31 Personal history of diabetic foot ulcer
CPT/HCPCS: 99213; 99214

== ENCOUNTER → 2024-03-20 13:13 | Outpatient (CLI) | payer MEDICARE, SELFPAY ==
[2023-01-05 12:50] VITALS: BMI 37.4
== END ==
PROVIDERS: PCP Family Medicine; Visit Provider Nurse Practitioner Family
DX: T14.8XXA Other injury of unspecified body region, initial encounter (principal); L08.9 Local infection of the skin and subcutaneous tissue, unspecified
CPT/HCPCS: 87070; 87075; 87077; 87147; 87186; 87205

== ENCOUNTER → 2024-06-27 11:01 | Outpatient (CLI) | payer MEDICARE, SELFPAY ==
[2024-05-03 11:59] VITALS: BMI 37.4
--- NOTE | 2024-08-15 08:12 | DIAB.MNT ---
Initial Diabetes Medical Nutrition Therapy Assessment Name: Rosario Gastelum (Kimberly) Date: 06/27/24 Time: [id number] Dx: Type II Diabetes Kimberly presents today for initial visit. DM dx reported in May. States she tried Januvia, not helpful. November/December 2023 finsished wound care. New wound shortly after per report. Has staph and MRSA, called infectious control provider for appt. Had Dexcom G6 previously. No symptoms with lows. 50-70mg/dl treats with candy. Last low was 2-3 months ago. Interested in G7 sample, PCP BECKY mentioned she would help Kimberly place G7. Lives alone. Endorses chronic infections of LE. Reports rx for Invocana was too expensive at $400 per month. Wonder if insurance may cover alternative SGLT2i. Diet Recall: black coffee and occasional 1 TBS creamer plain or flavored 12p or later: sandwich with meat, cheese, gutiérrez OR salad with crackers and dip 730-8p: salads with meat OR tacos hardshell x 3 +/- beans and rice OR burger josesito with onion and potato x1 and green beans water 8oz sf soda 12-24oz coffee iced tea with splenda and lemon sometimes Anthropometrics: Ht: 4'11 Wt: 193# Physical Activity: ADLs, physical limitations reported, ie leg injury when young Self-Monitoring Blood Glucose: None, has meter but no lancing device. Diabetes Medications: 2000mg Metformin 50u Glargine Pertinent Labs: HgA1c; 10.5% 05/2023 8.4% 03/2024 Past Medical History: (Last Updated 03/31/24 @ 11:10 by Ciera Casillas DO) Bilateral lower leg cellulitis (~12/2022) 2/2 cat scratch Cat scratch (~12/2022) months of wound care Hoarseness of voice (~07/2021) Persistent fatigue after COVID-19 Nutrition Rx: Plate Method Nutrition Diagnosis: - Inconsistent energy intake r/t skipped meals/snacks aeb diet recall - Predicted inadequate protein intake r/t increased needs for wound healing aeb diet recall - Predicted inadequate fluid intake r/t increased needs for wound healing and some days may be <30oz aeb diet recall Intervention: This participant was very receptive. Provided appropriate educational handouts. Discussed the following topics: Completed intake assessment. Discussed barriers to care. Reviewed access to lancing device ordering online Discussed CGM: G6 v G7, provided batsheva education Medication management: different types of SGLT2i and benefits and precautions Meal timing, protein recs and fluids Created SMART goals for patient self-care and success. Goals: Look for lancing device or purchase new one Try eating at least 2-3 times per day Drink water 8oz 2-3x per day + other beverages Follow-up: JOANN LEBLANC follow-up in 3-4 weeks Mary Patrick RDN, BENJI Certified Diabetes Care and Vending Machine Mechanic P: [phone] Thank you for this referral
== END ==
PROVIDERS: PCP Family Medicine; Referring Provider Family Medicine
DX: E11.21 Type 2 diabetes mellitus with diabetic nephropathy (principal); Z71.3 Dietary counseling and surveillance; Z79.84 Long term (current) use of oral hypoglycemic drugs; Z79.4 Long term (current) use of insulin; E11.65 Type 2 diabetes mellitus with hyperglycemia; E66.01 Morbid (severe) obesity due to excess calories; R79.89 Other specified abnormal findings of blood chemistry
CPT/HCPCS: 97802

== ENCOUNTER → 2025-05-03 10:38 | Outpatient (CLI) | payer MEDICARE, SELFPAY ==
[2024-05-03 11:59] VITALS: BMI 37.4
--- NOTE | 2025-05-03 10:42 | DI.MG.S_ITS ---
MM screening mammo BI: 05/03/2025. BI-RADS: 2 CLINICAL: 70-year old female for bilateral screening mammogram. Tyrer-Cuzick lifetime risk of 3.1%. No personal or first-degree family history of breast cancer. PRIOR EXAMS 01/15/2020, 12/05/2015. MAMMOGRAPHY TECHNIQUE: 2D and 3D (tomosynthesis) digital mammographic views obtained, with additional images as needed for full coverage. Current study was also evaluated with a Computer Aided Detection (CAD) system. DENSITY B. There are scattered areas of fibroglandular density. MAMMOGRAPHY FINDINGS Bilateral: Benign-appearing calcifications noted. There are no suspicious masses, calcifications, or other findings in the breast. IMPRESSION: * No evidence of malignancy with benign findings. RECOMMENDATIONS Bilateral * Annual screening mammography. OVERALL ASSESSMENT CATEGORY BI-RADS-2: Benign. [employer] recommends annual screening mammography beginning at age 40 for women with average risk of breast cancer. ELECTRONICALLY SIGNED: Danette Samaniego M.D. on 05/03/2025 at 04:51:03 PM PT Interpreting Station ID: [id number]
[2025-05-03 12:48] LABS: Alanine Aminotransferase 19 IU/L (<35); Albumin 3.8 g/dL (3.5-5.0); Albumin Globulin Ratio 1.4 (1.0-2.8); Alkaline Phosphatase 80 U/L (38-126); Blood Urea Nitrogen 16 mg/dL (7-17); Calcium 10.5 mg/dL (8.4-10.2); Carbon Dioxide 26 mmol/L (22-32); Chloride 102 mmol/L (98-107); Cholesterol 224 mg/dL (140-199); Estimated Glomerular Filt Rate > 60 mL/min (>60); Globulin 2.8 g/dL (1.7-4.1); Glucose 94 mg/dL (70-99); HDL Cholesterol 44 mg/dL (40-60); HEMOLYSIS < 15 (0-50); Potassium 4.2 mmol/L (3.4-5.1); Sodium 135 mmol/L (137-145); Total Protein 6.6 g/dL (6.3-8.2); Triglycerides 141 mg/dL (35-150)
[2025-05-03 12:53] LABS: Hemoglobin A1C% w Est Avg Glu 8.0 % (4.0-6.0)
[2025-05-03 13:17] LABS: TSH w/ Reflex to FT4 6.18 uIU/mL (0.47-4.68)
[2025-05-03 14:35] LABS: Microalbumi Creatinin Ratio Ur 34.0 ug/mg CR (<30)
[2025-05-03 16:56] LABS: Free T4, Direct Thyroxine 1.14 ng/dL (0.78-2.19)
== END ==
LOC: MAMMO 10:40
PROVIDERS: PCP Family Medicine; Referring Provider Family Medicine; Visit Provider Family Medicine
DX: Z12.31 Encounter for screening mammogram for malignant neoplasm of breast (principal); R92.1 Mammographic calcification found on diagnostic imaging of breast; R79.89 Other specified abnormal findings of blood chemistry; E03.9 Hypothyroidism, unspecified; E11.49 Type 2 diabetes mellitus with other diabetic neurological complication; E11.21 Type 2 diabetes mellitus with diabetic nephropathy; E11.65 Type 2 diabetes mellitus with hyperglycemia; E11.628 Type 2 diabetes mellitus with other skin complications; I10 Essential (primary) hypertension; Z79.4 Long term (current) use of insulin
CPT/HCPCS: 36415; 77063; 77067; 80053; 80061; 82043; 82570; 83036; 84439; 84443